=== PATIENT | female | born 1960 | race African-American/Black ===

== ENCOUNTER 2019-10-12 21:41 | Inpatient (IN) | payer OTHER, SELFPAY ==
--- NOTE | ~2019-10-12 | MR_ITS ---
EXAMINATION: MR brain/brain stem wo/w con DATE: 10/13/2019 10:26 INDICATION: Left-sided weakness. Numbness and tingling. Chest pressure. TECHNIQUE: Magnetic resonance imaging (MRI) of the brain and brainstem was performed without and with 15 mL MultiHance intravenous contrast. Sequences included sagittal and axial T1-weighted FSE, axial diffusion-weighted FS EPI, axial T2*-weighted GRE, axial T2-weighted FLAIR Propeller, and axial T2-we ighted Propeller. Postcontrast sequences included axial and coronal T1-weighted FSE. Apparent diffusi on coefficient (ADC) maps were created. COMPARISON: Head CT 10/12/2019 FINDINGS: There is a small old infarct in left cerebellum. There are scattered areas of nonspecific i ncreased T2-weighted signal intensity in the cerebral white matter, which is within normal limits for the patient's age. There is no intracranial hemorrhage, acute infarction, or abnormal intracranial m ass lesion. The ventricles are normal in size. The mastoid air cells are normal. The paranasal sinuse s are clear. The orbits are normal. IMPRESSION: 1. Small old infarct in left cerebellum. Reviewed, dictated and finalized at location A.
--- NOTE | ~2019-10-12 | MR_ITS ---
EXAMINATION: MR cervical spine wo con EXAM DATE: 10/14/2019 13:15 INDICATION: Left-sided weakness. TECHNIQUE: Multi-sequential, multiplanar MR images of the cervical spine were obtained without contra st. Axial T2, axial T2 MERGE sequence. Sagittal T1, T2, T2 fat saturation images also obtained. Th ere is no prior study for comparison. FINDINGS: There is mild to moderate mid lumbar disc disease. The vertebral bodies are aligned in the AP dimension. The spinal cord signal intensity and intrinsic morphology is normal. Cervicomedullary junction is normal in appearance. There are no suspicious marrow signal abnormalities. Paraspinal sof t tissue is unremarkable. Level by level evaluation: C2-C3: There is a minimal diffuse disc bulge. Uncovertebral joint arthropathy: None. Facet joint arthropathy: Mild. Neural foraminal stenosis: No stenosis. Central canal stenosis: No stenosis. C3-C4: There is a mild diffuse disc bulge. Uncovertebral joint arthropathy: Mild right. Facet joint arthropathy: Mild bilateral. Neural foraminal stenosis: Mild right. Central canal stenosis: Mild. C4-C5: There is a mild diffuse disc bulge. Uncovertebral joint arthropathy: Mild bilateral. Facet joint arthropathy: Mild bilateral. Neural foraminal stenosis: Mild bilateral. Central canal stenosis: Mild. C5-C6: There is a mild diffuse disc bulge. Uncovertebral joint arthropathy: Mild bilateral. Facet joint arthropathy: Mild bilateral. Neural foraminal stenosis: Mild bilateral. Central canal stenosis: Mild. C6-C7: There is a mild diffuse disc bulge. Uncovertebral joint arthropathy: Mild to moderate right, mild left. Facet joint arthropathy: Minimal bilateral. Neural foraminal stenosis: Mild to moderate right. Central canal stenosis: Mild. C7-T1: There is a mild diffuse disc bulge. Uncovertebral joint arthropathy: Mild to moderate bilateral. Facet joint arthropathy: Minimal. Neural foraminal stenosis: Mild to moderate left, mild right. Central canal stenosis: Mild. IMPRESSION: 1. Mild to moderate cervical spondylosis. Reviewed, dictated and finalized at location A.
--- NOTE | ~2019-10-12 | CT_ITS ---
EXAMINATION: CT brain wo con INDICATION: Left-sided weakness COMPARISON: None TECHNIQUE: Standard unenhanced head CT. The dose-length product (DLP) was 681.00 mGy-cm. The mA was a djusted according to patient size. Iterative reconstruction technique was employed. FINDINGS: There is no intracranial hemorrhage, acute infarction, or abnormal mass lesion. The ventric les are normal. There is no abnormal mass effect or midline shift. The diaz-white matter differentiat ion is normal. The basal cisterns are patent. The orbits are normal. The paranasal sinuses, mastoids and calvarium are normal. IMPRESSION: 1. No acute intracranial abnormality. Reviewed, dictated and finalized at location A.
--- NOTE | ~2019-10-12 | CT_ITS ---
EXAMINATION: CTA neck DATE: 10/13/2019 09:35 INDICATION: Carotid stenosis. Cerebral vascular accident. TECHNIQUE: Computed tomographic angiography (CTA) of the neck was performed with 100 mL Omnipaque-350 intravenous contrast. Automated exposure control and iterative reconstruction technique were employe d. The dose-length product was 634.13 mGy-cm. Maximum intensity projection 3D-reconstructions were cr eated by the technologist on a separate workstation. COMPARISON: None. FINDINGS: There are nodules in the thyroid measuring up to 13 mm, likely not clinically significant. There are no pathologically enlarged lymph nodes. Left vertebral artery is dominant. There is no sign ificant stenosis of the vertebral arteries. There is plaque in the proximal internal carotid arteries . There is 0% stenosis of the proximal right internal carotid artery relative to normal distal artery lumen diameter (NASCET criteria). There is 60% stenosis of the proximal left internal carotid artery relative to normal distal artery lumen diameter. There is mild cervical spondylosis. IMPRESSION: 1. 0% stenosis of the proximal right internal carotid artery relative to normal distal artery lumen d iameter (NASCET criteria). 2. 60% stenosis of the proximal left internal carotid artery relative to normal distal artery lumen d iameter. Reviewed, dictated and finalized at location A. IMPRESSION: 1. 0% stenosis of the proximal right internal carotid artery relative to normal distal artery lumen diameter (NASCET criteria). 2. 60% stenosis of the proximal left internal carotid artery relative to normal distal artery lumen diameter.
[2019-10-12 21:50] VITALS: BP 152/108; PULSE 79; RESP 14; O2SAT 100
--- NOTE | 2019-10-12 21:57 | ECG_ITS ---
Measurements Intervals [place] Rate: 82 P: 52 ND: 173 QRS: 9 QRSD: 82 T: 85 QT: 403 QTc: 473 Interpretive Statements SINUS RHYTHM VENTRICULAR PREMATURE COMPLEXES BORDERLINE ST-T WAVE ABNORMALITY- ANTEROLAT/HIGH LAT LEADS BASELINE ARTIFACT- V1, V4-V5 BORDERLINE ECG Electronically Signed On 10-13-2019 7:49:28 CDT by Urbano Stephenson D.O.
--- NOTE | 2019-10-12 22:08 | ED.NEUROSD ---
HPI - Neuro Symptoms/Deficit General Chief Complaint: Neuro Symptoms/Deficit Stated Complaint: L sided weakness Time Seen by Provider: 10/12/19 21:42 History of Present Illness HPI Narrative: She has had intermittent paresthesias to the left face and arm throughout the day. Then about 30 minutes prior to arrival her symptoms became worse. At that time she reorts that she was not able to move her left arm or leg at all. She also developed a severe headache. When EMS arrived they found that she was flacid on the left side. During transport her strength began improving and she was again able to move the left side. Related Data Home Medications Medication Instructions Recorded Confirmed alirocumab 75 mg/mL subcutaneous 75 mg SUB-Q ONCE 04/10/19 10/13/19 pen injector metoprolol succinate 50 mg 50 mg PO TID tablet 04/10/19 10/13/19 tablet,extended release 24 hr ticagrelor 90 mg tablet 90 mg PO HS 04/10/19 10/13/19 amlodipine-benazepril 1 cap PO HS 10/13/19 10/13/19 aspirin 81 mg PO HS 10/13/19 10/13/19 calcium-vitamin D3-vitamin K 1 tablet PO BID 10/13/19 10/13/19 [Viactiv] insulin glargine [Basaglar KwikPen 30 unit SUBCUT HS 10/13/19 10/13/19 U-100 Insulin] Allergies Allergy/AdvReac Type Severity Reaction Status Date / Time No Known Allergies Allergy Unverified 10/13/19 01:31 Review of Systems Review of Systems: All systems reviewed & are unremarkable except as noted in HPI and below Constitutional: Constitutional: Denies fever(s) Cardiovascular: Cardiovascular: Denies chest pain Respiratory: Respiratory: Denies dyspnea Genitourinary: Genitourinary: Denies dysuria Neurologic: Reports headache(s), Reports focal weakness and Reports numbness PMFSH Past Medical History Medical History (Updated 10/13/19 @ 05:04 by Zan Catalan MD) Anxiety Controlled diabetes mellitus with hyperglycemia Heart disease High blood pressure Surgical History Surgical History (Updated 10/13/19 @ 05:03 by Kevin Christiansen MD) History of abdominoplasty History of coronary artery stent placement Hx of CABG Family History Family History Father Depression Family history of malignant neoplasm Throat cancer Hypertension Mother Depression Family history of alcoholism Family history of arthritis Hypertension Cerebrovascular accident Sibling Depression Hypertension Grandparent Diabetes mellitus Family history of cardiovascular disease Family history of congestive heart failure Hypertension Social History Social History Smoking status: Never smoker Alcohol intake: never Substance use: never Substance use type: does not use Gender identity (if verbalized by the patient): Female Sexual Orientation (if Verbalized by the Patient): Straight or Heterosexual Spiritual care concerns: No Exam Const: General: healthy appearing, no acute distress and alert Orientation/consciousness: patient oriented x3 HENMT: Head: normal to inspection Eyes: Pupils: Equal, round and reactive pupils present EOM: EOMs intact bilaterally Neck: Neck: normal visual inspection and no lymphadenopathy Chest: Chest palpation & inspection: no tenderness Resp: Effort & Inspection: normal respiratory effort Auscultation: clear to auscultation bilaterally, no rales, no rhonchi and no wheezes Cardio: Jugular venous distension: no JVD Rate: regular rate Rhythm: regular rhythm Heart sounds: no murmurs GI: Inspection: non-distended GI Palp: Yes Soft to palpation and No Tenderness to palpation present (GI) Skin: General skin exam: normal color Neuro: General: patient oriented x3 and moves all extremities Speech: normal speech Other: 3/5 strength in right upper and right lower extremity Extrem: General: no edema Psych: Appearance: well kempt Affect: normal affect Course Vital Signs Bety
[2019-10-12 22:30] VITALS: BP 121/81; PULSE 80; RESP 15; O2SAT 99
[2019-10-12 22:36] LABS: Basophils Percent Auto 0.5 % (0.2-1.2); Eosinophils Absolute Auto 0.1 K/mm3 (0-0.3); Eosinophils Percent Auto 1.5 % (0-4.4); Hematocrit 34.3 % (37.0-47.0); Hemoglobin 11.5 g/dL (12.0-15.0); Immature Granulocyte Absolute 0.01 K/mm3 (0.00-0.031); Immature Granulocyte Percent A 0.1 % (0-0.5); Lymphocytes Absolute Auto 3.43 K/mm3 (0.9-3.2); Lymphocytes Percent Auto 46.1 % (18.3-44.2); Mean Corpuscular HGB Conc 33.5 g/dl (32-36); Mean Corpuscular Hemoglobin 28.5 pg (26-34); Mean Corpuscular Volume 84.9 fl (80-100); Mean Platelet Volume 11.3 fl (7.4-10.4); Monocytes Absolute Auto 0.3 K/mm3 (0.1-0.6); Monocytes Percent Auto 4.2 % (2.6-8.5); Neutrophils Absolute Auto 3.5 K/mm3 (1.3-6.7); Neutrophils Percent Auto 47.6 % (45.5-73.1); Platelet Count Result 228 k/mm3 (150-375); Red Blood Count 4.04 M/mm3 (4.2-5.4); Red Cell Distribution Width 12.3 % (11.5-14.5); White Blood Count 7.4 K/mm3 (4.5-10.0)
[2019-10-12 22:43] LABS: INR 0.9; Prothrombin Time 11.5 Seconds (11.1-14.7)
[2019-10-12 22:44] LABS: Partial Thromboplastin Time 25.5 SECONDS (22.3-36.8)
[2019-10-12 22:46] LABS: Alanine Aminotransferase 17 U/L (4-35); Albumin Level 4.6 g/dL (3.5-5.1); Alkaline Phosphatase 100 U/L (38-126); Aspartate Amino Transferase 25 U/L (14-36); Bilirubin,Total 0.2 mg/dL (0.2-1.3); Blood Urea Nitrogen 16 mg/dL (7-17); Calcium 9.4 mg/dL (8.4-10.2); Carbon Dioxide 23 mmol/L (22-30); Chloride 107 mmol/L (98-107); Estimated CRCL calculation 86 ml/min; Estimated Glomerular Filt Rate > 60; Glucose 137 mg/dL (65-105); Potassium 4.4 mmol/L (3.4-5.0); Sodium 138 mmol/L (137-145)
[2019-10-12 23:00] VITALS: BP 144/85; PULSE 80; RESP 16; O2SAT 99
[2019-10-12 23:23] VITALS: BP 121/80; PULSE 75; RESP 14; O2SAT 99
[2019-10-12] MEDS: SODIUM CHLORIDE 0.9% IV 1,000 ML 999 ML IV CONT (23:24)
[2019-10-13] VITALS (23 sets, daily range): BP systolic 80–171; BP diastolic 55–135; PULSE 55–85; RESP 14–18; TEMP 35.6–37.5; O2SAT 97–100; BMI 30.7
--- NOTE | 2019-10-13 00:08 | ECG_ITS ---
Measurements Intervals [place] Rate: 82 P: 59 GA: 174 QRS: 9 QRSD: 90 T: 110 QT: 384 QTc: 450 Interpretive Statements SINUS RHYTHM VENTRICULAR PREMATURE COMPLEXES NONSPECIFIC ST & T-WAVE ABNORMALITY- ANTEROLAT/HIGH LAT LEADS BASELINE ARTIFACT- II, III, AVF, V1-V2, V6 BORDERLINE ECG Electronically Signed On 10-13-2019 7:51:24 CDT by Urbano Stephenson D.O.
[2019-10-13 00:48] LABS: Cholesterol 205 mg/dL (0-200); HDL Direct 63 mg/dL; Phosphorus 4.4 mg/dL (2.5-4.5); Triglycerides 225 mg/dL (<150)
[2019-10-13 00:52] LABS: Troponin I < 0.012 ng/mL (0.000-0.034)
[2019-10-13 00:59] LABS: LDL Cholesterol Direct 75 mg/dL
--- NOTE | 2019-10-13 01:00 | ADMGEN ---
This patient, Cesar Benton, was admitted to IMU Room 203-01 on 10/13/19 at 0043. Patient/family oriented to hospital policies and general routines including ID bracelet, bed and alarms, visiting hours, pain management, procedures, bathroom and other care routines, personal items, smoking policy, room service/diet, and visiting hours. Valuables list has been completed. Information on how to activate the Rapid Response Team has been discussed. Patient/Family are encouraged to report perceived risks to care and to ask questions if they do not understand what they are told or what they should do.
[2019-10-13 01:07] LABS: Erythrocyte Sedimentation Rate 41 mm/hr (0-20)
--- NOTE | 2019-10-13 01:42 | PM.IMHP ---
H&P: HPI History of Present Illness Chief complaint: Stroke Narrative: This is a Diabetic female with known history of multiple previous CVAs, CAD+ s/p CABG x 8, and HTN who presented to the ER earlier this evening with a complaint of intermittent numbness/tingling all throughout the day and left sided weakness. The patient reports that she started to have left sided facial numbness around 9:30 am yesterday morning which progressed and involved the whole left side of her body. Her symptoms seemed to improve after a few hours but she still had left sided tingling. She didn't think much about it because she had similar symptoms about 1 month ago which resolved on its own. She had sex with her in the early evening and around 8:30 pm she was trying to get into the bathtub when she again started to have severe left sided numbness/tingling but now experiencing left sided weakness involving both her upper and lower extremity. Her left weakness was worse in the lower extremity. She denies any blurry vision or double vision. Her noticed that she had mild slurring of her speech but did not notice any facial droop. She denies any recent head trauma, passing out, or seizure like activity. She also relates that tonight she has had midsternal chest pressure and palpitations. She has had chest pressure for almost 1 month now. She denies any shortness of breath, fevers, chills, headache, abdominal pain, dysuria, hematuria,nausea, vomiting, diarrhea or rectal bleeding. CT brain was obtained and is unremarkable. Neurology has been consulted by ER provider. On my encounter with the patient tonight she continues to have severe left upper/lower extremity weakness++ Review of Systems Review of Systems: All systems reviewed & are unremarkable except as noted in HPI and below PMFSH Past Medical History Medical History Anxiety Controlled diabetes mellitus with hyperglycemia Heart disease High blood pressure Surgical History Surgical History History of abdominoplasty History of coronary artery stent placement Hx of CABG Family History Family History Father Depression Family history of malignant neoplasm Throat cancer Hypertension Mother Depression Family history of alcoholism Family history of arthritis Hypertension Cerebrovascular accident Sibling Depression Hypertension Grandparent Diabetes mellitus Family history of cardiovascular disease Family history of congestive heart failure Hypertension Social History Social History Smoking status: Never smoker Alcohol intake: never Substance use: never Substance use type: does not use Gender identity (if verbalized by the patient): Female Sexual Orientation (if Verbalized by the Patient): Straight or Heterosexual Spiritual care concerns: No Meds Home Medications and Allergies Home Medications Medication Instructions Recorded Confirmed Type alirocumab 75 mg/mL subcutaneous 75 mg SUB-Q ONCE 04/10/19 10/13/19 History pen injector dulaglutide 1.5 mg/0.5 mL 1.5 mg SUB-Q WEEKLY 90 Days #6.5 ml 04/10/19 10/13/19 Rx subcutaneous pen injector metformin 500 mg tablet 1,000 mg PO BID #360 tablet 04/10/19 10/13/19 Rx metoprolol succinate 50 mg 50 mg PO TID tablet 04/10/19 10/13/19 History tablet,extended release 24 hr ticagrelor 90 mg tablet 90 mg PO HS 04/10/19 10/13/19 History ergocalciferol (vitamin D2) 1,250 50,000 unit PO WEEKLY #12 cap 04/19/19 10/13/19 Rx mcg (50,000 unit) capsule amlodipine-benazepril 1 cap PO HS 10/13/19 10/13/19 History aspirin 81 mg PO HS 10/13/19 10/13/19 History calcium-vitamin D3-vitamin K 1 tablet PO BID 10/13/19 10/13/19 History [Viactiv] insulin glargine [Simoneaglstiven CornellPen 30 unit SOLIZ
[2019-10-13] MEDS: amLODIPine BESYLATE 5 MG TABLET 10 MG PO (02:00)
[2019-10-13] MEDS: METOPROLOL SUCCINATE EXT REL 50 MG TABCR PO (02:01)
[2019-10-13] MEDS: ATORVASTATIN 20 MG TABLET PO ×2 (02:01→21:12)
[2019-10-13] MEDS: TICAGRELOR 90 MG TABLET PO ×2 (02:01→21:12)
[2019-10-13] MEDS: lisinopriL 20 MG TABLET PO (02:02)
[2019-10-13] MEDS: ACETAMINOPHEN 325 MG TABLET 650 MG PO ×3 (02:04→21:12)
[2019-10-13] MEDS: ASPIRIN 81 MG CHEWABLE TABLET 324 MG PO (02:05)
[2019-10-13 02:06] LABS: Glucose Point of Care 150 (65-105)
[2019-10-13] MEDS: LACTATED RINGERS 1,000 ML 100 ML IV CONT (02:20)
[2019-10-13 02:21] LABS: Troponin I < 0.012 ng/mL (0.000-0.034)
[2019-10-13 04:42] LABS: Basophils Percent Auto 0.5 % (0.2-1.2); Eosinophils Absolute Auto 0.1 K/mm3 (0-0.3); Eosinophils Percent Auto 1.2 % (0-4.4); Hematocrit 31.3 % (37.0-47.0); Hemoglobin 10.5 g/dL (12.0-15.0); Immature Granulocyte Absolute 0.01 K/mm3 (0.00-0.031); Immature Granulocyte Percent A 0.1 % (0-0.5); Lymphocytes Absolute Auto 3.23 K/mm3 (0.9-3.2); Lymphocytes Percent Auto 42.8 % (18.3-44.2); Mean Corpuscular HGB Conc 33.5 g/dl (32-36); Mean Corpuscular Hemoglobin 28.6 pg (26-34); Mean Corpuscular Volume 85.3 fl (80-100); Mean Platelet Volume 11.1 fl (7.4-10.4); Monocytes Absolute Auto 0.4 K/mm3 (0.1-0.6); Neutrophils Absolute Auto 3.8 K/mm3 (1.3-6.7); Neutrophils Percent Auto 50.4 % (45.5-73.1); Platelet Count Result 197 k/mm3 (150-375); Red Blood Count 3.67 M/mm3 (4.2-5.4); Red Cell Distribution Width 12.5 % (11.5-14.5); White Blood Count 7.5 K/mm3 (4.5-10.0)
[2019-10-13 04:55] LABS: Blood Urea Nitrogen 14 mg/dL (7-17); Calcium 8.9 mg/dL (8.4-10.2); Carbon Dioxide 22 mmol/L (22-30); Chloride 109 mmol/L (98-107); Estimated CRCL calculation 91 ml/min; Estimated Glomerular Filt Rate > 60; Glucose 142 mg/dL (65-105); Magnesium 1.9 mg/dL (1.6-2.3); Sodium 138 mmol/L (137-145)
[2019-10-13 05:07] LABS: Troponin I < 0.012 ng/mL (0.000-0.034)
[2019-10-13 05:52] LABS: Glucose Point of Care 133 (65-105)
[2019-10-13] MEDS: ASPIRIN 81 MG ENTERIC TABLET PO (08:46)
--- NOTE | 2019-10-13 09:56 | PM.CNCAR ---
Assessment and Plan Additional Plan unstable angina/crescendo angina, Hx of CABG 2012 and PCI 2017 in OSH, no elevated trop, no dynamic EKG changes, in setting of acute ischemic stroke, plan ptn will need evaluation of CAD but after evaluation of acute ischemic stroke and risk of hemorrhagic conversion with anticoagulation with [facility]. ASA, Ticagrelor, TTE, add imdur 30 mg daily, cont B-cesario, CCB, and if BP is lower consider decreasing ACEI dose History of Present Illness History of Present Illness Consult date/time: 10/13/19 09:56 Consult reason: chest pain Reason For Visit: Stroke Narrative: Patient presented with one week Hx of intermittent left facial numbness but yesterday she had left side weakness and numbness extended from face to all left side, her weakness was severe, but today she feels improvement in weakness and numbness but still present. She has been having chest pain resterosternal moderate 7/10, pressure like non radiating that has been in increasing in severity and frequency for last 2 weeks but was afraid to seek help because of concern regarding COVID-19 infection risk with hospital visits. Pain improves with rest and SL NTG. She had CABG in 2013 and followed by stents to CAD in 2017. She had been feeling occasional pain since then but increased recently. Review of Systems Review of Systems: All systems reviewed & are unremarkable except as noted in HPI and below PMFSH Past Medical History Medical History Anxiety Controlled diabetes mellitus with hyperglycemia Heart disease High blood pressure Surgical History Surgical History History of abdominoplasty History of coronary artery stent placement Hx of CABG Family History Family History Father Depression Family history of malignant neoplasm Throat cancer Hypertension Mother Depression Family history of alcoholism Family history of arthritis Hypertension Cerebrovascular accident Sibling Depression Hypertension Grandparent Diabetes mellitus Family history of cardiovascular disease Family history of congestive heart failure Hypertension Social History Social History Smoking status: Never smoker Alcohol intake: never Substance use: never Substance use type: does not use Gender identity (if verbalized by the patient): Female Sexual Orientation (if Verbalized by the Patient): Straight or Heterosexual Spiritual care concerns: No Meds Home Medications and Allergies Home Medications Medication Instructions Recorded Confirmed Type alirocumab 75 mg/mL subcutaneous 75 mg SUB-Q ONCE 04/10/19 10/13/19 History pen injector dulaglutide 1.5 mg/0.5 mL 1.5 mg SUB-Q WEEKLY 90 Days #6.5 ml 04/10/19 10/13/19 Rx subcutaneous pen injector metformin 500 mg tablet 1,000 mg PO BID #360 tablet 04/10/19 10/13/19 Rx metoprolol succinate 50 mg 50 mg PO TID tablet 04/10/19 10/13/19 History tablet,extended release 24 hr ticagrelor 90 mg tablet 90 mg PO HS 04/10/19 10/13/19 History ergocalciferol (vitamin D2) 1,250 50,000 unit PO WEEKLY #12 cap 04/19/19 10/13/19 Rx mcg (50,000 unit) capsule amlodipine-benazepril 1 cap PO HS 10/13/19 10/13/19 History aspirin 81 mg PO HS 10/13/19 10/13/19 History calcium-vitamin D3-vitamin K 1 tablet PO BID 10/13/19 10/13/19 History [Viactiv] insulin glargine [Basaglar KwikPen 30 unit SUBCUT HS 10/13/19 10/13/19 History U-100 Insulin] Allergies Allergy/AdvReac Type Severity Reaction Status Date / Time No Known Allergies Allergy Unverified 10/13/19 01:31 Vital Signs Vital Signs - 24 hr 10/12/19 21:50 10/12/19 22:30 10/12/19 23:00 Temperature Pulse Rate 79 80 80 Respiratory Rate 14 15 16 Blood Pressure 152/108 H 121/81 144/85 H Pulse Oximetry 100 99 99
[2019-10-13 12:24] LABS: Glucose Point of Care 104 (65-105)
[2019-10-13] MEDS: ISOSORBIDE MONONITRATE 30 MG TAB.ER.24H PO (12:47)
[2019-10-13 16:44] LABS: Glucose Point of Care 127 (65-105)
--- NOTE | 2019-10-13 17:42 | PM.IMPN ---
Progress Note: A&P Assessment and Plan (1) Ischemic stroke: Code(s): I63.9 - Cerebral infarction, unspecified Status: Acute Assessment and Plan: With previous history will have to rule out CVA, echocardiogram, MRI brain. Allow for permissive HTN initially. . CT Brain was normal. Check Lipid panel. Administer Atorvastatin PO. Neurology has been consulted by ER provider and with previous history of some carotid disease worries by sonogram will get CTA of the carotids. (2) Chest pain: Qualifiers: Chest pain type: unspecified Qualified Code(s): R07.9 - Chest pain, unspecified Code(s): R07.9 - Chest pain, unspecified Status: Acute Assessment and Plan: EKG no definite ischemia. Nitroglycerin PRN for chest pain, Cardiology has seen and nitrate long-acting added to regime. Troponins are negative. (3) Diabetes mellitus: Qualifiers: Diabetes mellitus type: type 2 Diabetes mellitus usp insulin use: with director long term care use Diabetes mellitus complication status: without complication Qualified Code(s): E11.9 - Type 2 diabetes mellitus without complications; Z79.4 - detention (current) use of insulin Code(s): E11.9 - Type 2 diabetes mellitus without complications Status: Chronic Assessment and Plan: Accuchecks, SSI coverage, hypoglycemic protocol, decrease HS Lantus to 25 units. (4) HTN (hypertension) with goal to be determined: Code(s): I10 - Essential (primary) hypertension Status: Chronic Assessment and Plan: elevated initially but now low after restarting oral meds. monitor blood pressure. (5) Neuropathy: Code(s): G62.9 - Polyneuropathy, unspecified Status: Chronic Assessment and Plan: Inactive problem Subjective Date/time seen: 10/13/19 17:42 Interval history: 59-year-old type 2 diabetic with known coronary disease and cerebrovascular disease admitted with paresthesias and weakness of left arm and leg lungs substernal chest pain. Troponins are normal in initial CT scan no acute changes. Appears seizures have subsided but still has some weakness on the left arm. 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 and strength in the upper extremity Cranial nerves 2-12 are intact Objective Data Vital Signs Vital Signs: Vital Signs - 24 hr 10/12/19 21:50 10/12/19 22:30 10/12/19 23:00 Temperature Pulse Rate 79 80 80 Respiratory Rate 14 15 16 Blood Pressure 152/108 H 121/81 144/85 H Pulse Oximetry 100 99 99 10/12/19 23:23 10/13/19 00:35 10/13/19 00:43 Temperature 37.5 C Pulse Rate 75 82 83 Respiratory Rate 14 16 18 Blood Pressure 121/80 140/103 H 171/135 H Pulse Oximetry 99 99 100 10/13/19 00:48 10/13/19 00:50 10/13/19 02:00 Temperature Pulse Rate 85 83 74 Respiratory Rate 18 Blood Pressure Pulse Oximetry 100 10/13/19 02:01 10/13/19 03:32 10/13/19 03:46 Temperature 35.6 C L Pulse Rate 74 67 67 Respiratory Rate 18 18 Blood Pressure 112/73 Pulse Oximetry 100 100 10/13/19 04:00 10/13/19 05:51 10/13/19 05:55 Temperature Pulse Rate 68 62 Respiratory Rate Blood Pressure 103/59 L Pulse Oximetry 10/13/19 06:05 10/13/19 08:00 10/13/19 10:41 Temperature 36.6 C Pulse Rate 62 55 L 85 Respiratory Rate 14 Blood Pressure 95/61 L Pulse Oximetry 98 10/13/19 12:00 10/13/19 14:30 10/13/19 16:00 Temperature 36.7 C 36.6 C Pulse Rate 60 68 64 Respiratory Rate 18 16 Blood Pressure 102/64 80/55 L Pulse Oximetry 97 97 10/13/19 17:09 Temperature Pulse Rate Respiratory Rate Blood Pressure 98/62 L Pulse Oximetry Intake/Output Intake/Outp
[2019-10-13 20:47] LABS: Glucose Point of Care 212 (65-105)
[2019-10-13] MEDS: INSULIN GLARGINE (*BKC) 100 UNITS/ML 25 UNITS SUB-Q (21:13)
--- NOTE | 2019-10-13 22:28 | PC.NURSE ---
Pts bp was 102/63. I was concerned about giving her norvasc, metoprolol, and lisinipril since this was her highest bp. Her previous was 98 and 80 earlier in the day. I called Angie she said to hold it for tonight. Pt also stated while I was assessing her she has had chest heaviness since she arrived. She states it hasn't worse but is still there. I offered her some nitro which she refused she said she would let me know if it worsened.
[2019-10-14] VITALS (19 sets, daily range): BP systolic 90–135; BP diastolic 55–74; PULSE 56–84; RESP 16–20; TEMP 35.9–36.8; O2SAT 93–100
--- NOTE | 2019-10-14 | ECHO_ITS ---
Patient Info Name: Cesar Benton Age: 59 years : 1960 Gender: Female Ht: 64 in Wt: 169 lbs BSA: 1.88 m2 HR: 70 bpm BP: 118 / 67 mmHg Technical Quality: Good Exam Date: 10/14/2019 9:19 AM Exam Location: [facility] Patient Status: Inpatient Admit Date: 10/13/2019 Staff Ordering Physician: Kevin Christiansen MD Core Checker: Praful Gibson, EL, RT Attending Provider: Kevin Christiansen MD Referring Physician: Елена IRBY; Exam Type: CA echo dop bubble study w con Study Info Indications G45.9 - Transient cerebral ischemic attack, unspecified Complete two-dimensional, color flow and Doppler transthoracic echocardiogram is performed with contrast to opacify the left ventricle and to improve the deliniation of the left ventricle endocardial borders. Complete two-dimensional, color flow and Doppler transthoracic echocardiogram is performed with agitated saline. Summary 1. Left ventricular systolic function is normal, estimated at 55-60%. 2. There is mildly increased left ventricular wall thickness. 3. There is mild aortic valve sclerosis. 4. Intact interatrial septum visualized by Doppler and agitated saline imaging. 5. There is trivial pericardial effusion. Left Ventricle Left ventricular chamber dimension is normal. Left ventricular systolic function is normal, estimated at 55-60%. There is mildly increased left ventricular wall thickness. Left ventricular septal wall motion is normal. The left ventricular diastolic function is normal. Right Ventricle Right ventricular chamber dimension is normal. Right ventricular systolic function is normal. Ventricular Septum Intact interventricular septum visualized by color flow imaging. Left Atria Left atrial chamber dimension is normal. Right Atria Right atrial chamber dimension is normal. Atrial Septum Intact interatrial septum visualized by Doppler and agitated saline imaging. Aortic Valve The aortic valve is trileaflet. There is mild aortic valve sclerosis. There is no aortic valve stenosis. There is no aortic valve regurgitation. Pulmonic Valve The pulmonic valve is normal. There is no pulmonic valve stenosis. There is no pulmonic regurgitation. Mitral Valve The mitral valve has normal leaflets. There is no mitral valve stenosis. There is no mitral valve regurgitation. Tricuspid Valve The tricuspid valve leaflets are normal. There is no significant tricuspid valve stenosis. There is no tricuspid valve regurgitation. Pericardium/Pleural The pericardium appears normal. There is trivial pericardial effusion. Inferior Vena Cava Normal inferior vena cava with >50% collapse upon inspiration consistent with normal right atrial pressure, 5 mmHg. Aorta The aortic root size at the sinus of Valsalva is normal. The prox ascending aorta size is normal. Left Ventricular Outflow Tract Name Value Normal LVOT 2D LVOT Diameter 2.1 cm LVOT Doppler LVOT Peak Gradient 3 mmHg LVOT Mean Gradient 2 mmHg LVOT VTI 20 cm L
[2019-10-14 01:43] LABS: Glucose Point of Care 119 (65-105)
[2019-10-14] MEDS: ACETAMINOPHEN 325 MG TABLET 650 MG PO ×3 (04:56→20:14)
[2019-10-14 05:00] LABS: Blood Urea Nitrogen 11 mg/dL (7-17); Carbon Dioxide 24 mmol/L (22-30); Chloride 107 mmol/L (98-107); Estimated CRCL calculation 91 ml/min; Estimated Glomerular Filt Rate > 60; Glucose 110 mg/dL (65-105); Potassium 3.8 mmol/L (3.4-5.0); Sodium 138 mmol/L (137-145)
[2019-10-14 05:51] LABS: Glucose Point of Care 113 (65-105)
--- NOTE | 2019-10-14 07:47 | CONS_ITS ---
DATE OF CONSULTATION: 10/13/[address] Loco and Dr. Kevin Christiansen. HISTORY OF PRESENT ILLNESS: A 59-year-old right-handed female has admitted to [facility] through the emergency room for the complaint of intermittent numbness and tingling sensation all throughout the day on the left side of her body involving the left face and subsequently involving the left whole side. She had the same symptomatology about a month ago, which resolved on its own. She gave no history of any other symptomatology. She did complain of midsternal chest pressure and palpitation. PAST MEDICAL HISTORY: Anxiety, hypertension, diabetes mellitus, coronary artery disease and has undergone coronary artery bypass grafting x8. In addition, she has had abdominoplasty. SOCIAL HISTORY: She does not smoke, does not drink. MEDICATIONS: At the time of admission to the hospital, she was taking metformin 1000 mg twice a day, metoprolol 50 mg 3 times a day, ticagrelor 90 mg at night, ergocalciferol 57835 units weekly, amlodipine 1 capsule at bedtime with benazepril, aspirin 81 mg at bedtime, calcium with vitamin 1 tab twice a day, insulin 30 units subcu at bedtime. ALLERGIES: SHE IS NOT ALLERGIC TO ANY MEDICATION. PHYSICAL EXAMINATION: VITAL SIGNS: Evaluation up until now revealed her to be afebrile with pulse of 79, respirations 14, blood pressure 152/108, has come down to 144/85. Head normocephalic with no cranial bruit. Ear, nose, throat examination normal. NECK: Supple with no cervical bruit. No thyromegaly. No lymphadenopathy. HEART: Regular with no murmur. LUNGS: Clear to auscultation with no crepitation. ABDOMEN: Soft with no organomegaly. NEUROLOGIC: At this stage, she is awake, alert, cooperative. Speech not dysphasic, not dysarthric, not dysphonic. Pupils round, regular. Stevens of vision full. Extraocular movements full face symmetrical. Tongue midline. Motor examination revealed her to have no drift of 1 side or other side. Reflexes symmetrical, but sluggish. Plantars are downgoing. ASSESSMENT AND PLAN: Evaluation up until now includes cardiology consultation with Dr. Lawrence with the documentation of no elevated troponin. No dynamic EKG changes. Suggested to start the medication of the neuro evaluation completed. MRI of the brain is pending. Head CT scan is negative so is the neck CTA. She had a Doppler study in January 2019. At that time, the study was less than 50% in the right internal carotid artery, but 50% to 69% stenosis in the left IT internal carotid artery. Considering that, definitely she will need the MRI and CTA before any further recommendations are made. In the meantime, patient is receiving her medications including insulin, metoprolol, ticagrelor, atorvastatin, amlodipine, lisinopril, aspirin and isosorbide. Once the MRI and CTA completed, further recommendations will be made. ADITI MYERS M.D. BANQUET STEWARD BANQUET STEWARD D Jignesh MT: Jodi
[2019-10-14] MEDS: METOPROLOL SUCCINATE EXT REL 50 MG TABCR PO ×2 (08:41→20:15)
[2019-10-14] MEDS: ISOSORBIDE MONONITRATE 30 MG TAB.ER.24H PO (08:41)
[2019-10-14] MEDS: ASPIRIN 81 MG ENTERIC TABLET PO (08:41)
[2019-10-14] MEDS: PERFLUTREN LIPID MICROSPHERES 1.5 ML VIAL DILUTED TO 10 ML TOTAL VOLUME IV PUSH (09:57)
--- NOTE | 2019-10-14 10:35 | WPDNEUROPN ---
Progress Note: A&P Assessment and Plan (1) HTN (hypertension) with goal to be determined: Code(s): I10 - Essential (primary) hypertension Status: Chronic (2) Chest pain: Qualifiers: Chest pain type: unspecified Qualified Code(s): R07.9 - Chest pain, unspecified Code(s): R07.9 - Chest pain, unspecified Status: Acute (3) Diabetes mellitus: Qualifiers: Diabetes mellitus type: type 2 Diabetes mellitus lobsterman insulin use: with correction use Diabetes mellitus complication status: without complication Qualified Code(s): E11.9 - Type 2 diabetes mellitus without complications; Z79.4 - shelter (current) use of insulin Code(s): E11.9 - Type 2 diabetes mellitus without complications Status: Chronic (4) Ischemic stroke: Code(s): I63.9 - Cerebral infarction, unspecified Status: Acute (5) BMI 30.0-30.9,adult: Code(s): Z68.30 - Body mass index (BMI) 30.0-30.9, adult Status: Acute (6) Neuropathy: Code(s): G62.9 - Polyneuropathy, unspecified Status: Chronic (7) Osteopenia: Code(s): M85.80 - Other specified disorders of bone density and structure, unspecified site Status: Acute Additional Plan negative for stroke will get mri of c.spine before considering diabetic neuropathy only Review of Systems Review of Systems: All systems reviewed & are unremarkable except as noted in HPI and below Exam Const: General: no acute distress Nutritional Appearance: overweight Orientation/consciousness: patient oriented x3 Limitations: no limitations HENMT: Head: normal to inspection Ears: hearing grossly normal bilaterally General nose exam: No nasal discharge present Eyes: General: appearance normal, both eyes and all related structures Alignment and Position: alignment normal and position abnormal Periorbital: periorbital findings normal Eyelids: eyelids normal Conjunctivae: conjunctivae normal Sclera: sclerae normal Cornea: corneas normal Pupils: Equal, round and reactive pupils present EOM: EOMs intact bilaterally Neck: Neck: normal visual inspection, full ROM and no lymphadenopathy Resp: Effort & Inspection: normal respiratory effort Auscultation: clear to auscultation bilaterally Cardio: Rate: regular rate Rhythm: regular rhythm GI: Auscultation: normal bowel sounds Skin: General skin exam: no rashes or lesions noted Neuro: General: patient oriented x3, moves all extremities, no meningeal signs and no focal motor deficits Cranial nerves: Yes CN's II-XII intact bilaterally Speech: normal speech Gait exam (Neuro): Normal gait present Motor exam (neuro): 5/5 motor strength present throughout Deep tendon reflexes (DTR's): Right triceps reflex intensity grade: 1+, Left triceps reflex intensity grade: 1+, Rt Biceps (C5, C6): 1+, Left biceps reflex intensity grade: 1+, Right brachioradialis reflex intensity grade: 1+, Left brachioradialis reflex intensity grade: 1+, Right patellar reflex intensity grade: 1+, Left patellar reflex intensity grade: 1+, Right ankle reflex intensity grade: 1+ and Left ankle reflex intensity grade: 1+ Plantar Reflex Responses: downgoing: bilateral Extrem: General: normal to inspection Psych: Appearance: grossly normal Speech and movement: Normal speech and movement present Affect: normal affect Attitude: cooperative Thought process: Normal thought process present Thought content: Yes Normal thought content present Insight: Good insight present (Psych) Judgement: Good judgement present (Psych) Objective Data Vital Signs Vital Signs: Vital Signs - 24 hr 10/13/19 10:41 10/13/19 12:00 10/13/19 14:30 Temperature 36.7 C Pulse Rate 85 60 68 Respiratory Rate 18 Blood Pressure 102/64 Pulse Oximetry 97 10/13/19 16:00 10/13/19 17:09 10/13/19 18:17 Temperature 36.6 C Pulse Rate 64 66 Respiratory Rate 16 Blood Pressure 80/55 L 98/62 L Pulse Oximetry 97 09/24
--- NOTE | 2019-10-14 11:24 | PM.PNCARD ---
Progress Note: A&P Assessment and Plan (1) Chest pain: Qualifiers: Chest pain type: unspecified Qualified Code(s): R07.9 - Chest pain, unspecified Code(s): R07.9 - Chest pain, unspecified Status: Acute Assessment and Plan: [place] to have unstable angina/crescendo angina, Hx of CABG 2012 and PCI 2016 in OSH, no elevated trop, no dynamic EKG changes, in setting of what was felt to be an acute ischemic stroke. [place] that she will need evaluation of CAD but after evaluation of what was felt to be an acute ischemic stroke and risk of hemorrhagic conversion with anticoagulation with [facility]. MRI 10/13/2019:Small old infarct in left cerebellum. CT of the neck 10/13/2019: 0% stenosis of the proximal right internal carotid artery relative to normal distal artery lumen diameter (NASCET criteria). 60% stenosis of the proximal left internal carotid artery relative to normal distal artery lumen diameter. Continues to have chest pressure that has been present since admission. Has received 2 doses of the isosorbide mononitrate with no change in her discomfort. She describes this as a pressure. It does not increase with activity, position change or deep inspiration. Nothing has seems to make it better. Troponin negative x3. No acute EKG changes. Stop isosorbide mononitrate. Echo pending. GI cocktail. Protonix 40 mg IV push. Protonix 40 mg p.o. daily. Further workup of her left-sided weakness and paresthesias per the neurologist and hospitalist. Once that is all sorted out will consider further cardiac workup. (2) Palpitation: Code(s): R00.2 - Palpitations Status: Acute Assessment and Plan: She states that she has been having palpitations since admission. These have increased in frequency at home as well. Telemetry reviewed. Rare episodes premature ventricular contractions. None recently. Potassium 3.8 this morning. Magnesium 1.9 yesterday. Additional Plan Plan discussed Dr. Camara 1125 10/14/2019 Subjective Date/time seen: 10/14/19 11:24 Interval history: Follow-up for: History of coronary disease and cerebrovascular disease admitted with paresthesias and weakness of left arm and leg and substernal chest pressure. Date of service: 10/14/2019 Subjective: Frustrated. Numbness/tingling and weakness of the left side continues. She continues to have chest pressure and palpitations. Chest pressure has been present since admission. Review of Systems Constitutional: Constitutional: Reports fatigue, Reports headache(s) and Reports weakness Eyes: Eyes: Denies blurry vision ENT: Reports Normal hearing present, Denies dysphagia and Denies dizziness Cardiovascular: Cardiovascular: Reports chest pain (Chest pressure that has been present since admission), Denies pedal edema, Denies lightheadedness, Denies dyspnea and Reports other (Intermittent palpitations.) Respiratory: Respiratory: Denies dyspnea Gastrointestinal: Gastrointestinal: Reports bloating, Denies nausea, Denies vomiting and Reports other (Feels full early when eating) Genitourinary: Genitourinary: Denies hematuria Musculoskeletal: Musculoskeletal: Reports numbness (Left side) and Reports tingling (Left side) Integumentary/Breasts: Skin/Breast: Denies pruritus, Denies erythema and Denies rash Neurologic: Reports Normal hearing present, Reports abnormal gait (Related to left-sided weakness), Denies dizziness and Reports paresthesias (Left arm and leg) Psychiatric: Psychiatric: Reports anxiety Exam Const: General: cooperative, no acute distress and uncomfortable Nutritional Appearance: overweight Orientation/consciousness: patient oriented x3 Limitations: physical limitations (Left-side weak) HENMT: General nose exam: Normal nares present and no epistaxis Mouth: Yes moist mucous membranes Eyes: Sclera: sclerae normal Pupils: Equal, round and reactive pupi
[2019-10-14 12:08] LABS: Glucose Point of Care 119 (65-105)
[2019-10-14] MEDS: BELLADONNA ALK/PHENOB ELIX 10 ML, MAG HYDROX/ALUMINUM HYD/SIMETH 30 ML, LIDOCAINE HCL 2... PO (12:17)
[2019-10-14] MEDS: PANTOPRAZOLE SODIUM IV 40 MG VIAL IV PUSH (12:17)
--- NOTE | 2019-10-14 14:39 | PM.IMPN ---
Progress Note: A&P Assessment and Plan (1) Ischemic stroke: Code(s): I63.9 - Cerebral infarction, unspecified Status: Acute Assessment and Plan: , echocardiogram still pending, MRI brain no acute changes, just old infarc. . CT Brain was normal too. Administer Atorvastatin PO. CTA 60% LICA stenosis. Neurology has seen and will take on TRC when cardiac eval done Concerned her symptoms may be conversion rx. with normal MRI (2) Chest pain: Qualifiers: Chest pain type: unspecified Qualified Code(s): R07.9 - Chest pain, unspecified Code(s): R07.9 - Chest pain, unspecified Status: Acute Assessment and Plan: EKG no definite ischemia. Nitroglycerin PRN for chest pain, Cardiology has seen and nitrate added 10/12 d/alexandra with low bp and no improvement of cp. Troponins are negative. (3) Diabetes mellitus: Qualifiers: Diabetes mellitus type: type 2 Diabetes mellitus alf insulin use: with middle or intermediate school principal use Diabetes mellitus complication status: without complication Qualified Code(s): E11.9 - Type 2 diabetes mellitus without complications; Z79.4 - [facility]CI (current) use of insulin Code(s): E11.9 - Type 2 diabetes mellitus without complications Status: Chronic Assessment and Plan: Accuchecks, SSI coverage, hypoglycemic protocol, decreased HS Lantus to 25 units. and fbs today 110 (4) HTN (hypertension) with goal to be determined: Code(s): I10 - Essential (primary) hypertension Status: Chronic Assessment and Plan: elevated initially but now low after restarting oral meds. beta cesario decreased to q12h (5) Neuropathy: Code(s): G62.9 - Polyneuropathy, unspecified Status: Chronic Assessment and Plan: Neurology feels this is major factor in her symptoms. MRI cspine today mild to mod cervical spondylosis Subjective Date/time seen: 10/14/19 14:39 Interval history: Date of visit 10/13. 59-year-old type 2 diabetic with known coronary disease and cerebrovascular disease admitted with paresthesias and weakness of left arm and leg and substernal chest pain. Troponins are normal and initial CT scan no acute changes. still has some weakness on the left arm and leg. Still some chest pressure. Exam Narrative: Exam Narrative: Blood pressure 110/60 pulse 66 sat 97% on room air afebrile Pupils equal reactive to light sclera anicteric Neck supple no adenopathy left carotid bruit Lungs clear CV no murmurs gallops Abdomen is soft nontender Extremities without edema distal pulses 1+ Neuro decreased hand script girl and strength in the upper extremity and weakness of left leg too(but no drift with eyes closed and arms extended) Cranial nerves 2-12 are intact Objective Data Vital Signs Vital Signs: Vital Signs - 24 hr 10/13/19 16:00 10/13/19 17:09 10/13/19 18:17 Temperature 36.6 C Pulse Rate 64 66 Respiratory Rate 16 Blood Pressure 80/55 L 98/62 L Pulse Oximetry 97 10/13/19 19:40 10/13/19 20:00 10/13/19 22:00 Temperature 35.9 C L Pulse Rate 66 74 67 Respiratory Rate 18 Blood Pressure 102/63 Pulse Oximetry 100 10/13/19 22:23 10/14/19 00:00 10/14/19 00:11 Temperature 36.4 C L Pulse Rate 66 65 65 Respiratory Rate 20 Blood Pressure 90/55 L Pulse Oximetry 93 10/14/19 01:53 10/14/19 02:00 10/14/19 04:00 Temperature Pulse Rate 74 56 L 62 Respiratory Rate Blood Pressure Pulse Oximetry 95 10/14/19 04:20 10/14/19 06:00 10/14/19 07:44 Temperature 36.3 C L 36.4 C Pulse Rate 69 59 L 71 Respiratory Rate 20 18 Blood Pressure 118/67 115/74 Pulse Oximetry 99 99 10/14/19 08:00 10/14/19 08:41 10/14/19 10:00 Temperature Pulse Rate 77 76 61 Respiratory Rate Blood Pressure Pulse Oximetry 10/14/19 12:00 Temperature 36.5 C Pulse Rate 72 Respiratory Rate 18 Blood Pressure 116/63 Pulse Oximetry 98 Intake/Output Intake/Output: Intake & Output 10/10
[2019-10-14 17:45] LABS: Glucose Point of Care 159 (65-105)
[2019-10-14] MEDS: ATORVASTATIN 20 MG TABLET PO (20:15)
[2019-10-14] MEDS: TICAGRELOR 90 MG TABLET PO (20:15)
[2019-10-14 20:46] LABS: Glucose Point of Care 189 (65-105)
[2019-10-14] MEDS: INSULIN GLARGINE (*BKC) 100 UNITS/ML 25 UNITS SUB-Q (21:21)
[2019-10-14 23:55] LABS: Glucose Point of Care 127 (65-105)
[2019-10-15] VITALS (19 sets, daily range): BP systolic 103–154; BP diastolic 45–72; PULSE 60–84; RESP 16–20; TEMP 36.5–36.9; O2SAT 99–100
--- NOTE | 2019-10-15 03:43 | PC.NURSE ---
Spoke with Angie last night bp dropped to 80s today they only stayed in 1teens. she said to hold Norvasc and Lisinopril.
[2019-10-15 06:03] LABS: Glucose Point of Care 120 (65-105)
[2019-10-15] MEDS: ASPIRIN 81 MG ENTERIC TABLET PO (10:14)
[2019-10-15] MEDS: PANTOPRAZOLE 40 MG TABLET PO (10:15)
[2019-10-15] MEDS: ACETAMINOPHEN 325 MG TABLET 650 MG PO ×2 (10:17→20:56)
[2019-10-15 11:30] LABS: Glucose Point of Care 117 (65-105)
[2019-10-15] MEDS: METOPROLOL SUCCINATE EXT REL 50 MG TABCR PO ×2 (13:19→20:58)
--- NOTE | 2019-10-15 14:16 | PM.PNCARD ---
Progress Note: A&P Assessment and Plan (1) Chest pain: Qualifiers: Chest pain type: unspecified Qualified Code(s): R07.9 - Chest pain, unspecified Code(s): R07.9 - Chest pain, unspecified Status: Acute Assessment and Plan: still having chest pain. Hx of CABG 2012 and PCI 2017 in OSH, no elevated trop, no dynamic EKG changes. MRI 10/13/2019:Small old infarct in left cerebellum. CT of the neck 10/13/2019: 0% stenosis of the proximal right internal carotid artery relative to normal distal artery lumen diameter (NASCET criteria). 60% stenosis of the proximal left internal carotid artery relative to normal distal artery lumen diameter. Continues to have chest pressure that has been present since admission. Will repeat a EKG now as well as a troponin. Will discuss with Dr. Mcbride regarding neurological plans for workup. Further workup of her left-sided weakness and paresthesias per the neurologist and hospitalist. (2) Palpitation: Code(s): R00.2 - Palpitations Status: Acute Assessment and Plan: She states that she has been having palpitations since admission. These have increased in frequency at home as well. (3) Left-sided weakness: Code(s): R53.1 - Weakness Status: Acute Assessment and Plan: still uncertain as to etiology. Neurology following (4) CAD (coronary artery disease): Code(s): I25.10 - Atherosclerotic heart disease of [place] coronary artery without angina pectoris Status: Acute Assessment and Plan: continue dual anti-platelet therapy and current regimen. Depending on input from Neurology, will least perform a Lexiscan myocardial perfusion study tomorrow for an ischemic evaluation Subjective Date/time seen: 10/15/19 14:16 Interval history: Follow-up for: History of coronary disease and cerebrovascular disease admitted with paresthesias and weakness of left arm and leg and substernal chest pressure. Date of service: 10/15/2019 Subjective: She remains frustrated by her current symptoms and lack of answers. She is still having chest tightness that she has had since admission. Her weakness also has been persistent involving the left side of her body. Review of Systems Review of Systems: All systems reviewed & are unremarkable except as noted in HPI and below Constitutional: Constitutional: Reports fatigue, Reports headache(s) and Reports weakness Eyes: Eyes: Denies blurry vision ENT: Reports Normal hearing present, Denies dysphagia, Denies dizziness and Reports headache(s) Cardiovascular: Cardiovascular: Reports chest pain (Chest pressure that has been present since admission), Denies pedal edema, Denies lightheadedness, Denies dyspnea and Reports other (Intermittent palpitations.) Respiratory: Respiratory: Denies dyspnea Gastrointestinal: Gastrointestinal: Reports bloating, Denies dysphagia, Denies nausea, Denies vomiting and Reports other (Feels full early when eating) Genitourinary: Genitourinary: Denies hematuria Musculoskeletal: Musculoskeletal: Reports abnormal gait (Related to left-sided weakness), Reports numbness (Left side) and Reports tingling (Left side) Integumentary/Breasts: Skin/Breast: Denies pruritus, Denies erythema and Denies rash Neurologic: Reports Normal hearing present, Reports abnormal gait (Related to left-sided weakness), Denies dizziness, Reports headache(s), Reports numbness (Left side), Reports tingling (Left side), Reports paresthesias (Left arm and leg) and Reports weakness Psychiatric: Psychiatric: Reports anxiety Endocrine: Endocrine: Reports fatigue Exam Const: General: cooperative, no acute distress and uncomfortable Nutritional Appearance: overweight Orientation/consciousness: patient oriented x3 Limitations: physical limitations (Left-side weak) Other: Able to lie flat HENMT: General nose exam: Norm
--- NOTE | 2019-10-15 14:25 | ECG_ITS ---
Measurements Intervals [place] Rate: 64 P: 48 CT: 183 QRS: 0 QRSD: 91 T: 105 QT: 429 QTc: 445 Interpretive Statements SINUS RHYTHM DELAYED PRECORDIAL R/S TRANSITION LEFT VENTRICULAR HYPERTROPHY AND ST-T CHANGE BORDERLINE ST-T WAVE ABNORMALITY- ANTEROLATERAL LEADS BASELINE WANDER- I, III BORDERLINE ECG Electronically Signed On 10-15-2019 14:41:59 CDT by Urbano Stephenson D.O.
[2019-10-15 15:02] LABS: Troponin I < 0.012 ng/mL (0.000-0.034)
--- NOTE | 2019-10-15 16:56 | PM.IMPN ---
Progress Note: A&P Assessment and Plan (1) Ischemic stroke: Code(s): I63.9 - Cerebral infarction, unspecified Status: Acute Assessment and Plan: Exam not consistent with stuttering ischemia or for new CVA. She has minimal movement in bed but able to walk with therapy. Echo showing essentially normal. MRI brain showng no acute changes, just old infarcts. CTA showing 60% LICA stenosis. TRC consult ordered. Neurology folowing. Spoke to her about stress causing conversion like symptoms. She is under a fair amount of stress. (2) Chest pain: Qualifiers: Chest pain type: unspecified Qualified Code(s): R07.9 - Chest pain, unspecified Code(s): R07.9 - Chest pain, unspecified Status: Acute Assessment and Plan: EKG showing no definite ischemia. Trop negative x4. Nitroglycerin PRN available for chest pain. Cardiology has seen and nitrate added 10/12 but then stopped due to low bp and with no improvement of CP. CP atypical. Consider GI etilogy. Will consult GI for possible EGD. NPO after MN. (3) Diabetes mellitus: Qualifiers: Diabetes mellitus complication status: without complication Diabetes mellitus superintendent marine oil terminal insulin use: with superintendent marine oil terminal use Diabetes mellitus type: type 2 Qualified Code(s): E11.9 - Type 2 diabetes mellitus without complications; Z79.4 - joint terminal attack controller (current) use of insulin Code(s): E11.9 - Type 2 diabetes mellitus without complications Status: Chronic Assessment and Plan: A1c 8.0. Glucose reviewed on 10/15/19. Glucose mostly well controlled. Continue Accuchecks with SSI coverage. Continue Lantus. Hypoglycemic protocol available as needed. (4) HTN (hypertension) with goal to be determined: Code(s): I10 - Essential (primary) hypertension Status: Chronic Assessment and Plan: BP reviewed on 10/15/19. BP was elevated initially but now low at times. Mediations restarted but dose has since been decrease. Currently on Norvasc 10mg, Lisinopril 20mg and Toprol XL 50mg. Continue to monitor for now. (5) Neuropathy: Code(s): G62.9 - Polyneuropathy, unspecified Status: Chronic Assessment and Plan: Neurology feels this is major factor in her symptoms. MRI cspine today showing mild to mod cervical spondylosis. Continue PT/OT. Subjective Date/time seen: 10/15/19 16:56 Interval history: 59yo female with hx of CAD here for paresthesias and weakness of left arm and leg and substernal chest pressure. Assuming care. Chart reviewed. Patient states the chest 'pressure' is constant with nothing making it better or worse. Feels like a 'bubble' but belching does not make it better. Lifelong nonsmoker. No hx of PUD. Last BM was earlier today. Complaining of numbness left side of mouth that radiates down left arm Exam Narrative: Exam Narrative: AF 98.2 127/45 66 20 Gen - NARD CHest - CTA bilaterally, nml RR CV - RRR S1/S2; Tele showing no signifincat dysrhythmias Abd - soft, NT/ND, +BS Ext - no pedal edema Neuro - left hip flex 1/6. Dorsi and plantar flexion 2/6. no hyperreflexia patella or AJ. When walking into the room, patietn grabbing ipad but left retail sales teammate 3-4/5 on exam. Psych - anxious Objective Data Vital Signs Vital Signs: Vital Signs - 24 hr 10/14/19 18:00 10/14/19 20:00 10/14/19 20:15 Temperature 97.4 F L Pulse Rate 84 70 72 Respiratory Rate 18 Blood Pressure 117/63 Pulse Oximetry 99 10/14/19 22:00 10/14/19 23:58 10/15/19 00:00 Temperature 96.6 F L Pulse Rate 61 67 62 Respiratory Rate 16 Blood Pressure 105/55 L Pulse Oximetry 98 10/15/19 02:00 10/15/19 04:00 10/15/19 06:00 Temperature 97.7 F Pulse Rate 60 60 79 Respiratory Rate 18 Blood Pressure 122/71 Pulse Oximetry 99 10/15/19 07:47 10/15/19 08:00 10/15/19 10:00 Temperature 97.8 F Pulse Rate 66 74 84 Respiratory Rate 16 Blood Pressure 103/60 Pulse Oxime
[2019-10-15] MEDS: SIMETHICONE 80 MG TAB.CHEW PO ×2 (17:42→20:58)
[2019-10-15 20:32] LABS: Glucose Point of Care 178 (65-105)
[2019-10-15] MEDS: TICAGRELOR 90 MG TABLET PO (20:57)
[2019-10-15] MEDS: ATORVASTATIN 20 MG TABLET PO (20:57)
[2019-10-15] MEDS: amLODIPine BESYLATE 5 MG TABLET 10 MG PO (20:57)
[2019-10-15] MEDS: lisinopriL 20 MG TABLET PO (20:57)
[2019-10-15] MEDS: INSULIN GLARGINE (*BKC) 100 UNITS/ML 25 UNITS SUB-Q (20:59)
[2019-10-15 23:51] LABS: Glucose Point of Care 132 (65-105)
[2019-10-16] VITALS: PULSE 64
[2019-10-16 02:00] VITALS: PULSE 58
[2019-10-16 04:00] VITALS: BP 144/90; PULSE 61; PULSE 70; RESP 20; TEMP 36.7; O2SAT 94
[2019-10-16 05:14] LABS: Hemoglobin 10.6 g/dL (12.0-15.0); Mean Corpuscular HGB Conc 33.1 g/dl (32-36); Mean Corpuscular Hemoglobin 28.6 pg (26-34); Mean Corpuscular Volume 86.5 fl (80-100); Mean Platelet Volume 11.4 fl (7.4-10.4); Platelet Count Result 196 k/mm3 (150-375); Red Cell Distribution Width 12.3 % (11.5-14.5); White Blood Count 6.4 K/mm3 (4.5-10.0)
[2019-10-16 05:35] LABS: Blood Urea Nitrogen 12 mg/dL (7-17); Calcium 9.1 mg/dL (8.4-10.2); Carbon Dioxide 25 mmol/L (22-30); Chloride 109 mmol/L (98-107); Estimated CRCL calculation 91 ml/min; Estimated Glomerular Filt Rate > 60; Glucose 65 mg/dL (65-105); Potassium 3.5 mmol/L (3.4-5.0); Sodium 140 mmol/L (137-145)
[2019-10-16 05:59] LABS: Iron 70 ug/dL (37-170)
[2019-10-16 06:00] VITALS: PULSE 56
[2019-10-16 06:08] LABS: Percent Iron Saturation 22 % (20-50)
[2019-10-16 06:36] LABS: Folic Acid 13.4 ng/mL (2.76->20)
[2019-10-16 06:43] LABS: Glucose Point of Care 74 (65-105)
--- NOTE | 2019-10-16 10:41 | PM.DS ---
DS: Admitting Diagnosis Admitting Diagnosis Admitting Diagnosis: Cerebral infarction, unspecified DS: Discharge Diagnosis Discharge Diagnosis (1) Ischemic stroke: Code(s): I63.9 - Cerebral infarction, unspecified Status: Acute Assessment and Plan: Patient presents with left sided weakness. CT brain showing no acute findings. Echo showing essentially normal. MRI brain without and with contrast showing no acute changes, just small old left cerebellar CVA. CTA showing 60% LICA stenosis. Neurology following and felt symptoms related to neuropathy. Evaluation was ongoing still. TSH, B12 and folate level okay. Iron studies normal. Patient was unhappy with the slow progress and inability to find an answer for her symptoms so she decided to sign out against medical advise. Spoke with her about the risks and discussed with in the room with patient permission. Web Feeder also talked with patient prior to her leaving (2) Chest pain: Qualifiers: Chest pain type: unspecified Qualified Code(s): R07.9 - Chest pain, unspecified Code(s): R07.9 - Chest pain, unspecified Status: Acute Assessment and Plan: EKG showing no definite ischemia. Trop negative x4. Nitroglycerin PRN available for chest pain. Cardiology following and nitrate added 10/12 but then stopped due to low BP and with no improvement of CP. CP atypical inn nature so consider GI etiology. GI was consulted for possible EGD today but patient did not want any further evaluation. (3) Diabetes mellitus: Qualifiers: Diabetes mellitus complication status: without complication Diabetes mellitus carpenter inspector insulin use: with correction use Diabetes mellitus type: type 2 Qualified Code(s): E11.9 - Type 2 diabetes mellitus without complications; Z79.4 - compliance review officer (current) use of insulin Code(s): E11.9 - Type 2 diabetes mellitus without complications Status: Chronic Assessment and Plan: A1c 8.0. Glucose monitored closely. Glucose mostly well controlled. Accuchecks with SSI coverage. We continued Lantus. Hypoglycemic protocol was available as needed. (4) HTN (hypertension) with goal to be determined: Code(s): I10 - Essential (primary) hypertension Status: Chronic Assessment and Plan: BP monitored. BP was elevated initially but now low at times. Mediations restarted and adjusted per cardiology. (5) Neuropathy: Code(s): G62.9 - Polyneuropathy, unspecified Status: Chronic Assessment and Plan: Neurology feels that neuropathy is causing a majority of her symptoms. MRI C-spine showing mild to mod cervical spondylosis. She was treated with PT/OT. DS: Summary Hospital Course Reason for hospitalization: 59yo female here for left sided weakness. Please see H&P for details. Hospital Course: As above Time Spent with Patient Time attestation: Total time spent providing and/or coordinating discharge services:34 minutes Time spent: Greater than 30 minutes Specific discharge activities: Discussed with Cardiology. Discussed with patient. all questions were answered. Discussed with nursing about making sure patient has a safe discharge given her weakness. Exam Narrative: Exam Narrative: AF 98.2 144/90 56 Gen - NARD sitting up on the couch DS: Data Data Completed and Pending Labs on day of discharge: Labs from last 24 hours 10/16/19 10/16/19 10/16/19 06:40 04:23 04:23 WBC RBC Hgb Hct MCV MCH MCHC RDW Plt Count MPV Sodium 140 Potassium 3.5 Chloride 109 H Carbon Dioxide 25 BUN 12 Creatinine 0.60 L Estim Creat Clear Calc 91 Estimated GFR > 60 Glucose 65 POC Capillary Glucose 74 Calcium 9.1 Iron 70 TIBC 321 % Saturation 22 Ferritin 60.10 Troponin I Vitamin B12 493.0 Folate 13.4 10/16/19 10/15/19 10/15/19 04:23 23:16 20:
--- NOTE | 2019-10-16 10:51 | PM.PNCARD ---
Progress Note: A&P Assessment and Plan (1) Chest pain: Qualifiers: Chest pain type: unspecified Qualified Code(s): R07.9 - Chest pain, unspecified Code(s): R07.9 - Chest pain, unspecified Status: Acute Assessment and Plan: still having chest pain. Hx of CABG 2012 and PCI 2017 in OSH, no elevated trop, no dynamic EKG changes. MRI 10/13/2019:Small old infarct in left cerebellum. CT of the neck 10/13/2019: 0% stenosis of the proximal right internal carotid artery relative to normal distal artery lumen diameter (NASCET criteria). 60% stenosis of the proximal left internal carotid artery relative to normal distal artery lumen diameter. she is continuing to have pain. I have talked her and have advised that she not leave against medical advice but she and her have decided to leave. as detailed yesterday, was planning on performing at least a stress test today and there was a GI evaluation planned. I did talk to her about the need for follow-up with Dr. Valle or our nurse practitioner in the office [place]. I have also advised that if her chest pain continues or worsens in any way, she should go to the most immediate emergency department for further workup and evaluation. I also advised that if she did not want to have her care performed here and then she should consider going to a different hospital if needed given her ongoing symptoms. She and her verbalized understanding of all the above. We will send in a nitroglycerin prescription to her pharmacy 0.4 mg sublingual p.r.n. chest pain. Further workup of her left-sided weakness and paresthesias per the neurologist and hospitalist. (2) Palpitation: Code(s): R00.2 - Palpitations Status: Acute Assessment and Plan: She states that she has been having palpitations since admission. These have increased in frequency at home as well. (3) Left-sided weakness: Code(s): R53.1 - Weakness Status: Acute Assessment and Plan: still uncertain as to etiology. Neurology following (4) CAD (coronary artery disease): Code(s): I25.10 - Atherosclerotic heart disease of [place] coronary artery without angina pectoris Status: Acute Assessment and Plan: continue dual anti-platelet therapy and current regimen. Subjective Date/time seen: 10/16/19 10:51 Interval history: Follow-up for: History of coronary disease and cerebrovascular disease admitted with paresthesias and weakness of left arm and leg and substernal chest pressure. Date of service: 10/16/2019 Subjective: Still having chest pain. Troponins were negative low yesterday. EKG showed no acute ST abnormalities. still having weakness issues involving the left side Review of Systems Review of Systems: All systems reviewed & are unremarkable except as noted in HPI and below Constitutional: Constitutional: Reports fatigue, Reports headache(s) and Reports weakness Eyes: Eyes: Denies blurry vision ENT: Reports Normal hearing present, Denies dysphagia, Denies dizziness and Reports headache(s) Cardiovascular: Cardiovascular: Reports chest pain (Chest pressure that has been present since admission), Denies pedal edema, Denies lightheadedness, Denies dyspnea and Reports other (Intermittent palpitations.) Respiratory: Respiratory: Denies dyspnea Gastrointestinal: Gastrointestinal: Reports bloating, Denies dysphagia, Denies nausea, Denies vomiting and Reports other (Feels full early when eating) Genitourinary: Genitourinary: Denies hematuria Musculoskeletal: Musculoskeletal: Reports abnormal gait (Related to left-sided weakness), Reports numbness (Left side) and Reports tingling (Left side) Integumentary/Breasts: Skin/Breast: Denies pruritus, Denies erythema and Denies rash Neurologic: Reports Normal hearing present, Reports abnormal gait (Related to left-sided weaknes
--- NOTE | 2019-10-16 20:14 | PC.NURSE ---
I Went into Patients room to do her morning assessment and patient was visibly upset. She refused her morning assessment and medications. She had removed her telemetry and stated she was leaving the hospital because she felt she was not being listened to. Patient stated that she felt nobody believed her symptoms and felt she was not being taken seriously. I tried to console patient and she said she was not changing her mind and her was on his way to get her. I notified Meagan Chavez the ICU/IMU nurse redevelopment manager about the sitaution and she came to speak with the patient personally. After listening to the patient and talking with her Meagan notified the Doctors involved and patient advocacy. There has been a report filled. I expressed to the patient my concern for her safety due to her left sided weakness. I asked the patient if she would have help at home, she stated her who is a language path would be home with her for some time. The patient stated she would buy a walker to aid her weakness as soon as they left the hospital. I contacted Wendy with care coordination and she came to speak with Cesar about home health. They decided [facility] would be the best choice and Wendy said she would handle the necessary paperwork. I again expressed my concern for the patients safety and the patient stated her would be taking her directly to [facility] in [place] for immediate care. The patient signed an Against Medical Advice form and was informed that it was not medically advisable for her leave the hospital with her current symptoms. The patient insisted on leaving the hospital. I have faxed the necessary paperwork to [facility] for Follow-up.
--- NOTE | 2019-11-12 06:10 | WPDPN ---
Objective Data Meds/Results Radiology Results: ITS Impressions Head CT 10/13/19 08:48 IMPRESSION: 1. No acute intracranial abnormality. Brain MRI 10/13/19 14:56 IMPRESSION: 1. Small old infarct in left cerebellum. Neck CTA 10/13/19 15:03 IMPRESSION: 1. 0% stenosis of the proximal right internal carotid artery relative to normal distal artery lumen diameter (NASCET criteria). 2. 60% stenosis of the proximal left internal carotid artery relative to normal distal artery lumen diameter. Cervical Spine MRI 10/14/19 13:32 IMPRESSION: 1. Mild to moderate cervical spondylosis. Quality VTE Prophylaxis VTE prophylaxis: mechanical ordered Subjective Date/time seen: 11/12/19 06:10 patient signed out AMA and I was unable to see patient for consult
== END 2019-10-16 10:20 | disposition left against medical advice (07) | DRG 74 ==
LOC: ANHED 23:43 → ANHIMU 10-13 00:22
PROVIDERS: Internal Medicine; Internal Medicine Cardiovascular Disease; Admitting Provider Family Medicine; Emergency Provider Emergency Medicine; PCP Family Medicine; Visit Provider Internal Medicine
DX: E11.42 Type 2 diabetes mellitus with diabetic polyneuropathy (principal); R53.1 Weakness; R07.89 Other chest pain; I10 Essential (primary) hypertension; I65.22 Occlusion and stenosis of left carotid artery; I67.9 Cerebrovascular disease, unspecified; M47.812 Spondylosis without myelopathy or radiculopathy, cervical region; M85.80 Other specified disorders of bone density and structure, unspecified site; I25.10 Atherosclerotic heart disease of native coronary artery without angina pectoris; R00.2 Palpitations; Z79.4 Long term (current) use of insulin; Z79.82 Long term (current) use of aspirin; Z95.1 Presence of aortocoronary bypass graft; Z86.73 Personal history of transient ischemic attack (TIA), and cerebral infarction without residual deficits; Z95.5 Presence of coronary angioplasty implant and graft
CPT/HCPCS: 36415; 70450; 70498; 70553; 72141; 80048; 80053; 80061; 82607; 82728; 82746; 83036; 83540; 83550; 83735; 84100; 84443; 84484; 85025; 85027; 85610; 85652; 85730; 93005; 96360; 96375; 97110; 97116; 97162; 97165; 97530; 97535; 99285; A9270; A9577; C8929; C9113; G0378; J1815; J7030; J7120; Q9957; Q9967

== ENCOUNTER 2020-03-09 09:00 | Outpatient (RCR) | payer OTHER, SELFPAY ==
[2019-12-10 08:15] VITALS: PULSE 75; RESP 16; TEMP 36.3; O2SAT 98
[2019-12-10 08:26] VITALS: BP 138/80
[2019-12-10 09:29] VITALS: PULSE 86
--- NOTE | 2019-12-16 08:13 | PCCPR ---
Absent today, not feeling well.
--- NOTE | 2020-01-06 14:57 | PCCPR ---
Absent Arcelia was absent on 01/02/20 due to MD jackson however she did not call or show today. Message left to check on her. Requesting her to call us back for an update.
--- NOTE | 2020-01-20 09:35 | PCCPR ---
Absent Arcelia called she is not feeling well today. States she has an MD apt on Wed prescheduled she may be absent. Offered a couple of available class times if unable to make her regular time.
--- NOTE | 2020-02-12 08:11 | PCCPR ---
Absent-Arcelia called in stating she is having a lot of stomach issues and is trying to get into the doctor. Will be absent all week.
== END 2020-03-09 23:59 | disposition home or self-care (01) ==
LOC: ANHCPREHAB 09:00
PROVIDERS: PCP Family Medicine; Visit Provider Internal Medicine Cardiovascular Disease
DX: Z95.1 Presence of aortocoronary bypass graft (principal); Z95.5 Presence of coronary angioplasty implant and graft
CPT/HCPCS: 93798

== ENCOUNTER 2020-03-18 09:00 | Outpatient (RCR) | payer OTHER, SELFPAY | END 2020-03-30 09:02 | disposition home or self-care (01) | LOC: ANHCPREHAB 09:00 | PROVIDERS: PCP Family Medicine; Visit Provider Internal Medicine Cardiovascular Disease | DX: Z95.5 Presence of coronary angioplasty implant and graft (principal) | CPT/HCPCS: 93798 ==

== ENCOUNTER 2020-08-19 10:07 | Outpatient (CLI) | payer OTHER, SELFPAY ==
--- NOTE | ~2020-08-19 | MM_ITS ---
EXAMINATION: MM screening [facility] w chris HISTORY: Screening mammogram TECHNIQUE: Craniocaudal and mediolateral oblique 3-D tomosynthesis images were obtained and synthetic 2-D images were generated. CAD analysis was submitted and interpreted. COMPARISON: 03/23/2019 BREAST PARENCHYMAL COMPOSITION: There are scattered areas of fibroglandular density. FINDINGS: There is no evidence of suspicious mass, calcification, or architectural distortion to sugg est malignancy in either breast. There has been no suspicious interval change. IMPRESSION: 1. No mammographic evidence of malignancy. 2. Recommend routine screening mammography in one year. BI-RADS Category 1: Negative Reviewed, dictated and finalized at location A.
== END 2020-08-19 10:08 | disposition home or self-care (01) ==
LOC: ANHIMG 10:12
PROVIDERS: PCP Family Medicine; Visit Provider Family Medicine
DX: Z12.31 Encounter for screening mammogram for malignant neoplasm of breast (principal)
CPT/HCPCS: 77063; 77067

== ENCOUNTER 2021-10-26 09:47 | Outpatient (CLI) | payer OTHER, SELFPAY ==
--- NOTE | ~2021-10-26 | MM_ITS ---
EXAMINATION: MM screening [facility] BI w chris HISTORY: Screening TECHNIQUE: Craniocaudal and mediolateral oblique 3-D tomosynthesis images were obtained and synthetic 2-D images were generated. CAD analysis was submitted and interpreted. COMPARISON: Comparison to multiple prior studies sequentially, with oldest reviewed study dated 02/25. BREAST PARENCHYMAL COMPOSITION: There are scattered areas of fibroglandular density. FINDINGS: There is no evidence of suspicious mass, calcification, or architectural distortion to sugg est malignancy in either breast. There has been no suspicious interval change. IMPRESSION: 1. No mammographic evidence of malignancy. 2. Recommend routine screening mammography in one year. BI-RADS Category 1: Negative Reviewed, dictated and finalized at location A.
== END 2021-10-26 09:48 | disposition home or self-care (01) ==
PROVIDERS: PCP Family Medicine; Visit Provider Family Medicine
DX: Z12.31 Encounter for screening mammogram for malignant neoplasm of breast (principal)
CPT/HCPCS: 77063; 77067

== ENCOUNTER 2024-08-09 09:41 | Outpatient (CLI) | payer MEDICARE, OTHER, SELFPAY ==
--- NOTE | ~2024-08-09 | MM_ITS ---
EXAMINATION: MM screening xenia BI w chris HISTORY: Screening TECHNIQUE: Craniocaudal and mediolateral oblique 3-D tomosynthesis images were obtained and synthetic 2-D images were generated. CAD analysis was submitted and interpreted. COMPARISON: Comparison to multiple prior studies sequentially, with oldest reviewed study dated 02/25. BREAST PARENCHYMAL COMPOSITION: Not dense: There are scattered areas of fibroglandular density. FINDINGS: There is no evidence of suspicious mass, calcification, or architectural distortion to sugg est malignancy in either breast. There has been no suspicious interval change. IMPRESSION: 1. No mammographic evidence of malignancy. 2. Recommend routine screening mammography in one year. BI-RADS Category 1: Negative Reviewed, dictated and finalized at location A.
--- OUTSIDE RECORDS SUMMARY | 2024-08-09 09:55 | XMS_ITS | Clinical Summary ---
Author Organization [facility] [address] Address [address] [place] [address] Care Team Providers Care Open Hearth Laborer Name Role Phone Yudi Loco MD Unavailable [phone] Brianna Cano MD Unavailable [phone] Harshil Claros MD Unavailable [phone] Ruthie Valle MD Unavailable [phone] Yudi Loco MD Primary Care Provider + Allergies Active Allergy Reactions Criticality Noted Date Comments Atorvastatin Muscle pain Medium 12/03/2019 Leg pain and cramps Rosuvastatin Muscle pain Medium 12/03/2019 Leg pain and cramps Medications aspirin 81 mg tablet take 1 tablet by oral route every day 0 0 3 Active Additional Information Patient taking differently:81 mgoral Nightly, Indications: Myocardial Reinfarction Prevention, prevention of thrombosis, Informant: Self, Reported on 03/22/2023 TRULICITY 1.5 mg/0.5 mL pen injectorIndicati ons:type 2 diabetes mellitus Inject 0.5 mL (1.5 mg total) under the skin once a week MONDAYS 2 9 Active metFORMIN XR (GLUCOPHAGE XR) 500 mg 24 hr tabletIndication s:type 2 diabetes mellitus Take 1 tablet (500 mg total) by mouth 2 (two) times a day 4 9 Active metoprolol XL (TOPROL-XL) 50 mg 24 hr tabletIndication s:Atherosclerosi s of [place] coronary artery of [place] heart without angina pectoris Take 1 tablet (50 mg total) by mouth 2 (two) times a day 180 tablet 3 0 Active Additional Information Patient taking differently:50 mg oral 2 times daily,Indications: hypertension, Informant: Self, Reported on 03/22/2023 amLODIPine-benaz epriL (LOTREL) 10-20 mg per capsuleIndicatio ns:Essential hypertension TAKE 1 CAPSULE BY MOUTH EVERY NIGHT 90 capsule 1 Active Additional Information Patient taking differently: 1 capsule oral Nightly, Indications: hypertension, Informant: Self, Reported on 03/22/2023 ezetimibe (ZETIA) 10 mg tabletIndication s:hyperlipidemia Take 1 tablet (10 mg total) by mouth nightly Active insulin glargine (insulin glargine) 100 unit/mL vial for injectionIndicat ions:diabetes Inject 32 Units under the skin nightly Active ergocalciferol (VITAMIN D) 50,000 unit capsuleIndicatio ns:Vitamin D Deficiency Take 1 capsule (50,000 Units total) by mouth once a week Take on Monday Active isosorbide mononitrate ER (IMDUR) 60 mg 24 hr tabletIndication s:htn Take 1 tablet (60 mg total) by mouth every morning Active Repatha SureClick 140 mg/mL pen injectorIndicati ons:hypercholest erolemia Inject 1 mL (140 mg total) into the muscle as instructed every 14 (fourteen) days 3 Active minoxidiL (LONITEN) 2.5 mg tabletIndication s:hypertension Take 1 tablet (2.5 mg total) by mouth every morning 3 Active HYDROcodone-acet aminophen (NORCO) 5-325 mg per tabletIndication s:Pain Take 1 tablet by mouth every 6 (six) hours as needed for pain 30 tablet 4 Active Vascepa 1 gram capsule Take 2 capsules (2 g total) by mouth 2 (two) times a day 4 Active Brilinta 60 mg tablet Take 1 tablet (60 mg total) by mouth 2 (two) times a day 4 Active ferrous sulfate 325 mg (65 mg of elemental iron) tablet 1 tablet (325 mg total) 4 Active methylPREDNISolo ne (MEDROL DOSEPACK) 4 mg Dosepack Take 1 tablet (4 mg total) by mouth daily Use as directed by package instructions 21 tablet 4 Active Active Problems Problem Noted Date Diagnosed Date Ascending aorta dilatation 11/24/2023 Dizziness 11/24/2023 Fatigue 11/24/2023 Orthostatic hypotension 11/24/2023 Arthritis of carpometacarpal (CMC) joint of righ t thumb 03/02/2023 Right carpal tunnel syndrome 03/02/2023 Constipation 02/07/2023 Gastroparesis 02/07/2023 Generalized hyperreflexia 02/07/2023 GERD (gastroesophageal reflux disease) High calcium levels 02/07/2023 Insomnia 02/07/2023 Migraine headache 02/07/2023 Neuropathy 02/07/2023 Obstructive sleep apnea syndrome 02/07/2023 Depressive disorder 06/17/2022 Traumatic incomplete tear of left rotator cuff 0 07/06/2021 Overview (07/06/2021): Added automatically from request for surgery [id number] Carotid atherosclerosis, left 11/15/2019 Colitis 11/15/2019 Left-sided weakness 11/15/2019 Chest discomfort 11/13/2019 Left carotid bruit 02/11/2019 Coronary artery disease of n ative artery of [place] heart with stable angina pectoris 07/04/2017 Assessment & Plan (07/04/2017 8:01 PM CDT): Patient found to have multivessel coronary artery disease when she was only 53 years old, status post CABG 2013. It appears that the SVG to the CT0 RCA was occluded, and she had 2 DARREL to the RCA (versus RCA graft?) in September 2016. She continues to have some exertional angina although improved compared to last summer. Will continue with her aggressive risk factor reduction. BP and diabetes are usually under good control per the patient; lipids are under as good a control as I think we can get them. Statin intolerance 07/04/2017 Assessment & Plan (07/04/2017 7:51 PM CDT): Intolerant to atorvastatin and rosuvastatin as well as Zetia. History of CVA (cerebrovascular accident) 2017 Assessment & Plan (07/04/2017 7:56 PM CDT): Patient reports a TIA although it sounds more like a minor CVA perhaps with some mild hemorrhage, in 2016, causing diplopia. Hypertension associated with diabetes 07/04/2017 Overview (07/04/2017): BP not at goal today but this is patient's 1st visit. However it was not at goal when she saw Dr. Torres recently, either. Abnormal mammogram of right breast 05/30/2017 Assessment & Plan (05/30/2017 1:45 PM DIRECTOR OF ORTHOPEDICS): Mar 2017 Needs 6 month follow-up (September 2017) Release for prior records. Class 1 obesity due to exces s calories with serious comorbidity and body mass index (BMI) of 30.0 to 30.9 in adult 05/30/2017 Assessment & Plan (05/30/2017 2:02 PM DIRECTOR OF ORTHOPEDICS): Obesity is newly identified. Discussed the patient's BMI. The BMI is above average; BMI management plan is completed. General weight loss/lifestyle modification strategies discussed (elicit support from others; identify saboteurs; non-food rewards, etc). Body mass index is 30.73 kg/m . Atherosclerosis of coronary artery 06/05/2013 Type 2 diabetes mellitus with other specified co mplication 09/21/2012 Assessment & Plan (05/30/2017 2:07 PM DIRECTOR OF ORTHOPEDICS): Multiple new medical complaints today, most concerning of which is the headaches. Only prior records avail are from 2013 and earlier. Nothing more recent despite looking in [employer], [employer] system, and care everywhere in [place]. Apparently had head imaging in 2016 that showed history of stroke. Cardiac stents placed within the last 12 months. Labs done today at [facility] office. No new meds or stressors in the last 2 months to explain the headaches, although they do seem to be in a tension pattern Patient does say that her eye exam is up to date with no evidence of diabetic retinopathy She does not feel like her DMT2 is well controlled, but she is unsure what her most recent HgbA1c was. Will await today's lab results and prior records. Instructed patient to call office if headaches worsen or change. Mixed hyperlipidemia 09/21/2012 Assessment & Plan (07/04/2017 7:50 PM CDT): Severe hyperlipidemia. POC lipids today: Total cholesterol 195, HDL 90, TG 143, LDL 76. Pretty good on Praluent. Resolved Problems Problem Noted Date Diagnosed Date Resolved Date Angina pectoris, unstable 07/04/2017 Immunizations Immunization Administration Dates Next Due Influenza, Trivalent, IM (MDV) 12/25/2012,2011 Influenza, Unspecified 11/30/2016 Pfizer SARS-CoV-2 Monovalent Vaccination (12+ Yrs) PURPLE 01/27/2021,06/26/2020,06/05/2020 Tdap 09/21/2012 Surgical History Surgery Date Site/Laterality Comments HYSTERECTOMY 03/27/1996 - 03/26/1997 CORONARY ARTERY BYPASS GRAFT 09/24/2012 - 10/24/2012 CARDIAC STENT PLACEMENT 10/07/2016 2 STENTS PARATHYROIDECTOMY 06/24/2013 FLUORO GUIDED INJECTION SHOU LDER LEFT 07/14/2020 Left FLUORO GUIDED INJECTION SHOU LDER LEFT 01/05/2021 Left ANKLE ARTHRODESIS 03/27/2007 - 03/26/2008 Right CARDIAC STENT PLACEMENT 11/25/2019 1 STENT ABDOMINOPLASTY 03/27/2004 - 03/26/2005 Medical History Medical History Date Comments Hyperlipidemia Diabetes mellitus (HCC) Hypertension Hx Other Medical 2012 bypass Disorder of thyroid 2013 thyroid dise ase Cardiovascular disease 09/2016 DARREL to A? X2 Hx of migraine headaches TIA (transient ischemic attack) 2016 Diplopia Neuropathy Type 2 diabetes mellitus (HCC) Family History Medical History Relation Name Comments Cancer Father Ovarian cancer Maternal Grandmother COPD Mother Hypertension Mother Anesthesia problems Neg Hx Breast cancer Neg Hx Colon cancer Neg Hx Relation Name Status Comments Father (Age 52) Throat CA Maternal Grandmother Mother Alive Social History Tobacco Use Types Packs/Day Years Used Date Smoking Tobacco: Never Smokeless Tobacco: Never Tobacco Cessation:Counseling Given: Not Answered Alcohol Use Standard Drinks/Week Comments No 0 (1 standard drink = 0.6 oz pur e alcohol) AUDIT-C Answer Date Recorded Q1: How often do you have a drink containing alcohol? Never 04/12/2023 Q2: How many drinks containi ng alcohol do you have on a typical day when you are drinking? Patient does not drink Q3: How often do you have si x or more drinks on one occasion? Never 04/12/2023 Personal Safety Answer Date Recorded Have you ever been in or are you currently in a harmful physical or emotional relationship or is someone making you feel afraid or unsafe? Denies 04/12/2023 Comments No Sex and Gender Information Value Date Recorded Sex Assigned at Not on file Legal Sex Female 1:40 AM DIRECTOR OF ORTHOPEDICS Gender Identity Not on file Sexual Orientation Not on file Occupation Industry Job Start Date Job End Date Not on file Not on file Not on file Not on file Obstetrics History Last Filed Vital Signs Vital Sign Reading Time Taken Comments Blood Pressure 115/70 04/12/2023 12:50 PM DIRECTOR OF ORTHOPEDICS Pulse 79 04/12/2023 1:00 PM DIRECTOR OF ORTHOPEDICS Temperature 36.2 C (97.2 F) 04/12/2023 1:00 PM DIRECTOR OF ORTHOPEDICS Respiratory Rate 17 04/12/2023 1:00 PM DIRECTOR OF ORTHOPEDICS Oxygen Saturation 97% 04/12/2023 1:00 PM DIRECTOR OF ORTHOPEDICS Inhaled Oxygen Concentration - - Weight 79.4 kg (175 lb) 04/12/2023 7:45 AM DIRECTOR OF ORTHOPEDICS Height 162.6 cm (5' 4 ) 04/12/2023 7:45 AM DIRECTOR OF ORTHOPEDICS Body Mass Index 30.04 04/12/2023 7:45 AM DIRECTOR OF ORTHOPEDICS Plan of Treatment Health Maintenance Due Date Last Done Comments Albumin Creatinine Ratio, Urine 1960 Colon Cancer Screening-Colonoscopy 1960 Hemoglobin A1C 1960 Hepatitis C Screening 1960 Dilated Eye Exam 1960 Hepatitis B Screening 1978 Regular Well Visit/Exam 18-64 1978 Zoster Vaccine (1 of 2) 2010 Depression Screening 05/30/2018 05/30/2017 Foot Exam 05/30/2018 05/30/2017 eGFR 08/26/2019 08/25/2018 Lipid Panel 02/23/2020 02/22/2019, 06/0 03/2018, 03/26/2018, Additional history exists Breast Cancer Screening-Mammogram 10/26/2022 022, 03/31/2017 Covid-19 Vaccine (2023- 5 season) 2023 01/31/2022, 01/27/2021, 06/26/2020, Additional history exists Influenza Vaccine (Season Ended) 2024 01/27/2022, 01/26/2021, 01/13/2020, Additional history exists Pneumococcal vaccine <65 (3 of 3 - PCV20 or PCV21) 01/30/2025 01/31/2020, 01/22/2019, 03/01/2017, Additional history exists DTaP/Tdap/Td Vaccine (5 - Td or Tdap) 01/26/2031 01/26/2021, 06/15/2017, 06/15/2017, Additional history exists Medical Devices Implanted Type [employer] Device Identifier Shelf Expiration Date Model / Serial / Lot [employer] Corkscrew Suturetape 5.5mm 14.7mm Bioabsorbable Full Thread 1.3mm [id number] - [id number] Implanted:Qty: 1 on 08/06/2021 by Arben Choi MD at [facility] Other - see comments Left: Shoulder [employer] 01/24/[id number] / / [id number] [employer] Ar-2324 Bcm Swivelock 4.75mm 24.5mm Self Punch Vent Shoulder [place] Suture - S0 - [id number] Implanted:Qty: 1 on 08/06/2021 by Arben Choi MD at [facility] Other - see comments Left: Shoulder [employer] 03/26/2025 AR-2324B CM / 0 / [id number] Description:Suture [place] [employer] Ar-2324 Bcm Swivelock 4.75mm 24.5mm Self Punch Vent Shoulder [place] Suture - S0 - [id number] Implanted:Qty: 1 on 08/06/2021 by Arben Choi MD at [facility] Other - see comments Left: Shoulder [employer] 03/26/2025 AR-2324B CM / 0 / [id number] Description:Suture [place] Stent-10/07/2016 Implanted:Qty: 2 on 10/07/2016 Stent N/A: Heart Stent-11/25/2019 Implanted:Qty: 1 on 11/25/2019 Stent Heart Synergy [employer] Heart [employer] Corkscrew Fiberwire 2.7mm 7mm 17.9mm Needle Wire Foot Ankle 2-0 [id number] - [id number] Implanted:Qty: 2 on 04/12/2023 by Myron Encinas MD at [facility] Right: Wrist [employer] [id number] 11/25/2027 [id number] / / [id number] Procedures Procedure Name Priority Date/Time Associated Diagnosis Comments LIPID PANEL Routine 02/22/2019 9:06 AM DIRECTOR OF ORTHOPEDICS Mixed hyperlipidemia Statin intolerance Encounter for long-term (current) use of other medications COMPREHENSIVE METABOLIC PANEL Routine 08/25/2018 8:09 AM CDT Encounter for long-term (current) use of medications Hyperlipidemia, unspecified hyperlipidemia type Coronary artery disease of [place] heart with stable angina pectoris, unspecified vessel or lesion type SCREENING MAMMOGRAM 2D BILATERAL Schedule Routine, Read Routine (OP Routine) 03/31/2017 from Last 3 Months or Most Recently Relevant to Health Maintenance Results * (ABNORMAL) Lipid panel (02/22/2019 9:06 AM DIRECTOR OF ORTHOPEDICS) Cholesterol 201(H) 100 - 199 mg/dL [facility] - 01 Triglycerides 227(H) 0 - 149 mg/dL [facility] - 01 HDL Cholesterol 72 >39 mg/dL [facility] - 01 VLDL 45(H) 5 - 40 mg/dL [facility] - 01 LDL, calculated 84 0 - 99 mg/dL [facility] - 01 Blood specimen (specimen) 02/22/2019 9:06 AM DIRECTOR OF ORTHOPEDICS 02/22/2019 Narrative [facility] - 02/23/2019 5:06 AM DIRECTOR OF ORTHOPEDICS Performed at: - [facility] [address] [id number] Beck Tender: Sree Beasley PhD, Phone: [phone] us Ruthie Valle MD LAB BLOOD ORDERABLES Edited Result - Final [facility] - 01 * (ABNORMAL) Comprehensive metabolic panel (08/25/2018 8:09 AM CDT) [facility] Glucose 119(H) 65 - 99 mg/dL [facility] - 01 BUN 12 6 - 24 mg/dL [facility] - 01 Creatinine, Serum 0.93 0.57 - 1.00 mg/dL [facility] - 01 eGFR If NonAfricn Am 68 >59 mL/min/1.7 3 [facility] - 01 eGFR If Africn Am 78 >59 mL/min/1.7 3 [facility] - 01 BUN/creat ratio 13 9 - 23 [facility] - 01 Sodium 142 134 - 144 mmol/L [facility] - 01 Potassium, sr 4.6 3.5 - 5.2 mmol/L [facility] - 01 Chloride 105 96 - 106 mmol/L [facility] - 01 CO2 21 20 - 29 mmol/L [facility] - 01 Calcium 9.6 8.7 - 10.2 mg/dL [facility] - 01 Protein, sr 7.3 6.0 - 8.5 g/dL [facility] - 01 Albumin 4.5 3.5 - 5.5 g/dL [facility] - 01 Globulin, Total 2.8 1.5 - 4.5 g/dL [facility] - 01 A/G Ratio 1.6 1.2 - 2.2 [facility] - 01 Bilirubin, Total 0.3 0.0 - 1.2 mg/dL [facility] - 01 Alk phos 76 39 - 117 IU/L [facility] - 01 AST 17 0 - 40 IU/L [facility] - 01 ALT 14 0 - 32 IU/L [facility] - 01 Blood specimen (specimen) 08/25/2018 8:09 AM CDT 08/25/2018 Narrative [facility] - 08/26/2018 6:38 AM CDT Performed at: [facility] [id number] Beck Tender: Sree Beasley PhD, Phone: [phone] us Ruthie Valle MD LAB BLOOD ORDERABLES Final Result [facility] - 01 * Screening Mammogram 2D Bilateral (03/31/2017) SCRIBED BI-RADS 3 Anatomical Region Laterality Modality Breast Bilateral Mammography Historical Provider MD FLORES MAMMO PROCEDURES Alessandra l Result from Last 3 Months or Most Recently Relevant to Health Maintenance Insurance [facility] H[facility]/PPO Address: [address] [address] [place] [address] [facility] HMO/PPO Address: [address] [address] [place] [address] MEDICARE [facility] HMO/PPO Address: [address] [address] [place] [address] MEDICARE Care Teams Open Hearth Laborer Relationship Specialty Start Date End Date Yudi Loco MD [address] [place] [address] DR WEBBER [address] [place] [address] PCP - General 05/14/20 Yudi Loco MD Family Medicine 12/16/19 Brianna Cano MD [address] [place] [address] [address] WEBBER [address] [place], [place] [address] [address] Referring Physician Neurology 11/18/19 Harshil Claros MD [address] [place] [address] DR IKE Matute [address] [address] Referring Physician Gastroenterology 11/18/19 Ruthie Valle MD [address] [place] [address] DR IKE Matute [address] [address] Consulting Physician Cardiology 11/18/19
--- OUTSIDE RECORDS SUMMARY | 2024-08-09 09:55 | XMS_ITS | Clinical Summary ---
Author Organization [facility] Address [address] [place] [address] Phone Care Team Providers Care Hat Forming Machine Feeder Name Role Phone Unavailable Primary Care Provider Unavailabl e Encounters Date Type Department Care Team Description 07/19/2024 Telephone [facility] [address] [place] [address] Cheikh Mullins APRN, CNP from Last 3 Months Social History Tobacco Use Types Packs/Day Years Used Date Smoking Tobacco: Never Assessed Comments Unknown Sex and Gender Information Value Date Recorded Sex Assigned at Not on file Legal Sex Female 8:59 AM CDT Gender Identity Not on file Sexual Orientation Not on file Plan of Treatment Health Maintenance Due Date Last Done Comments Hepatitis C Virus (HCV) Screening 1960 Mammogram 1960 TdaP Immunization 1960 Pap Smear 1981 Cervical Cancer Screening (CCS) 1990 HPV/Cotest 1990 Colonoscopy 2005 Colorectal Cancer Screening 2005 Cologuard 2010 Immunochemical Fecal Occult Blood 2010 Pneumococcal Immunization (5 0+ years) (1 of 1 - PCV) 2010 Zoster Immunization (1 of 2) 2010 SARS-COV-2 Immunization ( - 2023-25 season) 2023 Influenza Immunization (Seas on Ended) 2024 Respiratory Syncytial Virus (RSV) Immunization (Adult) (1 - 1-dose 75+ series) 2035 Hepatitis B Immunization Aged Out No longer eligible based on patient's age to complete this topic Meningococcal Immunization (ACWY) Aged Out No longer eligible based on patient's age to complete this topic Rotavirus Immunization Aged Out No lo nger eligible based on patient's age to complete this topic
--- OUTSIDE RECORDS SUMMARY | 2024-08-09 09:55 | XMS_ITS | Clinical Summary ---
Author Organization [facility] Address [address] [address] Care Team Providers Care Loin Trimmer Name Role Phone Torie Del Castillo MD Primary Care Provider [phone] Robinson Castellanos DO Unavailable [phone] Source Comments [facility],non-owned Affiliates and Associated Physician Practices is amultiple site organization consisting of ambulatory clinics and hospital sitesin [place], [place], [place] and [place]. This disclosure is being madepursuant to the Care Everywhere program and may not contain all information available regarding this patient. Last updated 17.[facility] Allergies Active Allergy Reactions Criticality Noted Date Comments Atorvastatin Myalgias Medium 12/03/2019 Leg pain and cramps Rosuvastatin Myalgias Medium 12/03/2019 Leg pain and cramps Medications * Be aware that medications may not be up to date on this document. Alwaysverify current medications with the patient. PRALUENT 150 MG/ML injection Use 150 mL as directed 6 Active vitamin D, ergocalciferol, (DRISDOL) 55203 UNITS capsule Take 1 (one) capsule by mouth once daily 6 6 Active lisinopril (PRINIVIL; ZESTRIL) 20 MG tablet Take 1 (one) tablet by mouth once daily 6 Active metoprolol succinate XL 24hr (TOPROL XL) 100 MG tablet Take 1 (one) tablet by mouth once daily 3 6 Active aspirin (ASPIRIN) 81 MG tablet Take 81 mg by mouth Active insulin detemir (LEVEMIR FLEXTOUCH) pen 6 Active dapagliflozin-m etFORMIN ER 24hr (XIGDUO XR) 5-500 MG tablet 6 Active amLODIPine-josé zepril (Lotrel) 10-20 MG capsule Take 1 (one) capsule by mouth at bedtime 4 Active dulaglutide (Trulicity) 1.5 MG/0.5ML injection ADMINISTER 1.5 MG UNDER THE SKIN 1 TIME A WEEK Active evolocumab (Repatha SureClick) 140 MG/ML auto-injector ADMINISTER 1 ML UNDER THE SKIN EVERY 14 DAYS 3 Active ezetimibe (Zetia) 10 MG tablet Take 1 (one) tablet by mouth once daily 3 Active icosapent ethyl (Vascepa) 1 g capsule Take 2 (two) capsules by mouth 2 times daily 4 Active insulin glargine (Lantus SoloStar) pen ADMINISTER 32 UNITS UNDER THE SKIN EVERY DAY AT BEDTIME Active Brilinta 60 MG tablet Take 1 (one) tablet by mouth 2 times daily 3 Active Active Problems No known active problems Family History Medical History Relation Name Comments Cancer Father Diabetes Maternal Grandfather Heart Disease Maternal Grandfather Diabetes Maternal Grandmother Heart Disease Maternal Grandmother Diabetes Paternal Grandfather Diabetes Paternal Grandmother Relation Name Status Comments Father Maternal Grandfather Maternal Grandmother Paternal Grandfather Paternal Grandmother Social History Tobacco Use Types Packs/Day Years Used Date Smoking Tobacco: Never Smokeless Tobacco: Never Tobacco Cessation:Counseling Given: Not Answered Alcohol Use Standard Drinks/Week Comments No 0 (1 standard drink = 0.6 oz pur e alcohol) Comments Unknown Sex and Gender Information Value Date Recorded Sex Assigned at Not on file Legal Sex Female 5:57 AM JAR CAPPER Gender Identity Not on file Sexual Orientation Not on file Last Filed Vital Signs Vital Sign Reading Time Taken Comments Blood Pressure 142/89 05/30/2023 9:14 AM JAR CAPPER Pulse 80 05/30/2023 9:14 AM JAR CAPPER Temperature - - Respiratory Rate - - Oxygen Saturation 99% 05/30/2023 9:14 AM JAR CAPPER Inhaled Oxygen Concentration - - Weight 80.3 kg (177 lb) 05/30/2023 9:14 AM JAR CAPPER Height 162.6 cm (5' 4 ) 05/30/2023 9:14 AM JAR CAPPER Body Mass Index 30.38 05/30/2023 9:14 AM JAR CAPPER Plan of Treatment Health Maintenance Due Date Last Done Comments COLOGUARD (AGES 45-75) - COLON CA SCREENING 1960 COLON MONITORING 1960 COLONOSCOPY - COLON CA SCREENING 1960 CT COLONOGRAPHY - COLON CA SCREENING 1960 Colorectal Cancer Screening 1960 FIT - COLON CA SCREENING 1960 FLEX SIG - COLON CA SCREENING 1960 LIPID TESTING 1960 MAMMOGRAM 1960 MEDICARE AWV 12 MONTHS 1960 PAP SMEAR 1960 HIV SCREENING 1975 HEPATITIS C SCREENING 03/26/1978 DTAP/TDAP/TD VACCINES (1 - Tdap) 1979 PNEUMOCOCCAL VACCINE 50+ (1 of 1 - PCV) 2010 ZOSTER VACCINE (1 of 2) 2010 SCREENING FOR DIABETES 05/30/2023 COVID-19 VACCINE ( season) 2023 01/27/2021, 06/26/2020, 06/05/2020 DEPRESSION SCREENING 03/27/2024 INFLUENZA VACCINE (Season Ended) 2024 01/27/2022, 01/26/2021, 01/13/2020, Additional history exists Respiratory Syncytial Virus (RSV) Vaccine Pt: or over 60 yrs (1 - 1-dose 75+ series) 2035 HEPATITIS B VACCINE Aged Out No longe r eligible based on patient's age to complete this topic HIB VACCINE Aged Out No longer eligi ble based on patient's age to complete this topic HPV VACCINE Aged Out No longer eligi ble based on patient's age to complete this topic MENINGOCOCCAL (Group B) VACCINE SHARED DECISION-MAKING Aged Out No longer eligible based on patient's age to complete this topic MENINGOCOCCAL GROUPS A/C/Y/W VACCINE Aged Out No longer eligible based on patient's age to complete this topic Insurance [employer] MEDICARE [employer] Care Teams Loin Trimmer Relationship Specialty Start Date End Date Torie Del Castillo MD PCP - General Internal Medicine 09/15/14 Robinson Castellanos DO Orthopedic Surgery 03/16/16
--- OUTSIDE RECORDS SUMMARY | 2024-08-09 09:55 | XMS_ITS ---
Author Organization [facility] Address [address] [address] Care Team Providers Care Narrow Fabric Loom Fixer Name Role Phone Brooke Mitchell Primary Care Provider Unavail able Erik Eubanks Unavailable [phone] Florecita Carrion Unavailable Unavailable REASON FOR VISIT RE:RE:adrenals/anemia/refills Encounters Encounter Location Date Provider Diagnosis [facility] [address] [facility] [address] [address] 07/19/2024 Erik Eubanks PLAN OF TREATMENT Next Appt Details Provider Name:Erik Eubanks, 08/29/2024 11:00:00 AM, [address], [address],
--- OUTSIDE RECORDS SUMMARY | 2024-08-09 09:55 | XMS_ITS ---
Author Organization [facility] Address [address] [address] Care Team Providers Care Cork Grinder Name Role Phone Brooke Mitchell Primary Care Provider Unavail able Erik Eubanks Unavailable [phone] Florecita Carrion Unavailable Unavailable REASON FOR VISIT lab results MEDICATIONS Medication SIG (Take, Route, Fr equency, Duration) Notes Start Date End Date Status Brilinta 90 MG 1 tablet Orally Twic e a day for 30 day(s) 07/22/2024 Active Slow-Mag 71.5-119 MG 1 Tablet Orally Onc e a day for 30 day(s) 07/22/2024 Active Klor-Con 10 10 MEQ 1 tablet with food O rally Once a Day for 30 day(s) 07/22/2024 Active Encounters Encounter Location Date Provider Diagnosis [facility] [address] [address] 07/22/2024 Erik Eubanks Hypertension I10 ASSESSMENTS Encounter Date Diagnosis Assessment Notes Treatment Notes Treatment Clinical Notes 07/22/2024 Hypertension (ICD-10 - I10) PLAN OF TREATMENT Medication Medication Name Sig Start Date Stop Date Notes Ticagrelor 60 MG 0.5 tablet Orally Twice a day Brilinta 90 MG 1 tablet Orally Twic e a day for 30 day(s) 07/22/2024 Slow-Mag 71.5-119 MG 1 Tablet Orally Onc e a day for 30 day(s) 07/22/2024 Klor-Con 10 10 MEQ 1 tablet with food O rally Once a Day for 30 day(s) 07/22/2024 Next Appt Details Provider Name:Erik Eubanks, 08/29/2024 11:00:00 AM, [address], [place], [address],
--- OUTSIDE RECORDS SUMMARY | 2024-08-09 09:55 | XMS_ITS | Patient Health Record ---
Author Organization [facility] Address [address] [facility] [address] [place] [address] Care Team Providers Care Investigator Internal Affairs Name Role Phone Beronica HART, Yudi Primary Care Provider Robinson De La Rosa Unavailable [phone] Allergies No Known Allergies Reason For Referral No Information Medications Medication SIG (Take, Route, Frequency, Duration) Notes Start Date End Date Status amLODIPine Benzoate Active Brilinta 90 MG 1 tablet Orally Twic e a day for 30 day(s) Active Ezetimibe Active OTC/Vitamins ASA, B12, D2 Acti ve Metoprolol Succinate ER Active Jardiance Active Praluent Active Lantus Active Trulicity Active metFORMIN HCl Active Vascepa 1mg-2 tabs BID Activ e Social History Tobacco Use: Social History Observation Description Date Details (start date - stop date) Never Smoker NA - NA Tobacco Use/Smoking Question Answer Notes Are you a nonsmoker Problems Problem Type SNOMED Code ICD Code Onset Dates Problem Status W/U Status Risk Notes Problem 657604139 Gastroparesis (K31.84) Active confirmed Problem 424720924 GERD (gastroesophagea l reflux disease) (K21.9) Active confirmed Start omeprazole 40mg daily Problem 65669157 Constipation (K59.00) Active confirmed Start miralax daily, titrate to adequate bowel movements. Start daily benefiber. Problem 75867888 Ischemic colitis (K55.9) Active confirmed Plan Of Treatment Pending Test Test Name Order Date Colonoscopy 10/14/2020 Insurance Providers Payer Name Payer Address Payer Phone Subscriber Number Group Number Insured Name Patient Relationship to Insured Coverage Start Date Coverage End Date [facility] Choice/ choice Plus E2 [address] [address] [place] [address] [phone] [id number] Marcus Benton Spouse - patient is the spouse of the insured Medical (General) History Medical History History ICD Code GERD Ischemic Colitis Diabetes Hypertension Stroke Sleep Apnea Heart Disease/Stents Coronary Artery Disease Depression Hyperlipidemia Migraines Ovarian Cancer Surgical History Surgery Date(Month/Year) Colonoscopy:Mucosal ulceration consistent with Ischemic Colitis. 10/2019 Angioplasty x2 , 3 Stents 10/2019 Hyperparathyroid 05/2013 CABG x8 09/2012 Abdominoplasty 2005 Hysterectomy Ankle Surgery C Section Hospitalization History Reason Date(Month/Year) [facility]:Abdominal Pain, Hematochezia [facility]: Abnormal Stress Test 10/2019 Stroke Like Symptoms 09/2019
--- OUTSIDE RECORDS SUMMARY | 2024-08-09 09:55 | XMS_ITS | Patient Health Record ---
Author Organization [facility] Address [address] [address] Care Team Providers Care Publicity Person Name Role Phone StephenNidiaBrooke Primary Care Provider Unavail able Erik Eubanks Unavailable [phone] Florecita Carrion Unavailable Unavailable Belen Kearns Unavailable [phone] ALLERGIES Allergen (clinical drug ingredient) Drug/Non Drug Allergy documented on EMR Reaction Allergy Type Onset Date Status rosuvastatin Crestor Unknown Drug Allergy Acti ve empagliflozin Jardiance UTI's Drug Allergy Act hillary dapagliflozin Farxiga UTI's Drug Allergy Act hillary dapagliflozin / metformin Xigduo XR UTI's Drug Allergy Active metformin MetFORMIN HCl ER Hair loss Drug Allergy Active RESULTS Component Value Reference Range Notes Bone Density (DEXA Scan) - Ash Griffith Reviewed date:08/29/2023 01:53:12 PM Interpretation: Performing Lab: Notes/Report: Bone Density (DEXA Scan) - Ash Griffith Reviewed date:08/29/2023 01:53:12 PM Interpretation: Performing Lab: Notes/Report: Hemoglobin A1c Reviewed date:10/01/2023 12:00:05 PM Interpretation: Performing Lab:[facility], [address] [facility], [place], Phone - [phone], Director - PhDRicchilouisei Notes/Report: Hemoglobin A1c 7.8 4.8-5.6 % . Prediabetes: 5.7 - 6.4 Diabetes: >6.4 Glycemic control for adults with diabetes: <7.0 Vitamin D, 25-Hydroxy Reviewed date:10/01/2023 12:03:00 PM Interpretation: Performing Lab:[facility], [address] [place] [address], Phone - [phone], Director - [facility] Notes/Report: Vitamin D, 25-Hydroxy 39.0 30.0-100.0 ng/mL Vitamin D deficiency has been defined by the [place] of Medicine and an Endocrine Society practice guideline as a level of serum 25-OH vitamin D less than 20 ng/mL (1,2). The Endocrine Society went on to further define vitamin D insufficiency as a level between 21 and 29 ng/mL (2). 1. IOM ([place] of Medicine). 2010. Dietary reference intakes for calcium and D. [place]: The National Academies Press. 2. Tali MF, Judy ROGERS, Rhina BUI, et al. Evaluation, treatment, and prevention of vitamin D deficiency: an Endocrine Society clinical practice guideline. JCEM. 2010; 96(7):1911-30. Microalb/Creat Ratio, Randm Ur Reviewed date:10/01/2023 12:02:32 PM Interpretation: Performing Lab:[facility], [address] [facility], Phone - [phone], Director - [facility] Notes/Report: Creatinine, Urine 282.6 Not Estab. mg/dL Albumin, Urine 54.9 Not Estab. ug/mL Alb/Creat Ratio 19 0-29 mg/g creat Normal: 0 - 29 Moderately increased: 30 - 300 Severely increased: >300 Vitamin B12 Reviewed date:10/01/2023 12:02:47 PM Interpretation: Performing Lab:[facility], [address] [facility], Phone - [phone], Director - [facility] Notes/Report: Vitamin B12 681 486-9325 pg/mL Adama Holland CMP14 Default A hand-written panel/profile was received from your office. In accordance with the [facility] Ambiguous Test Code Policy dated September 2002, we have completed your order by using the closest currently or formerly recognized AMA panel. We have assigned Comprehensive Metabolic Panel (14), Test Code #976924 to this request. If this is not the testing you wished to receive on this specimen, please contact the [facility] Client Inquiry/Technical Services Department to clarify the test order. We appreciate your business. Lipid Panel Reviewed date:10/01/2023 12:03:21 PM Interpretation: Performing Lab:[facility] [place] [facility] [facility], Phone - [phone], Director - [facility] Notes/Report: Cholesterol, Total 180 100-199 mg/dL Triglycerides 108 0-149 mg/dL HDL Cholesterol 75 >39 mg/dL VLDL Cholesterol Abdirizak 19 5-40 mg/dL LDL Chol Calc ([facility]) 86 0-99 mg/dL LDL Calc Comment: Comp Metabolic Panel (14) Reviewed date:10/01/2023 12:04:21 PM Interpretation: Performing Lab:[facility] [place], [facility], Phone - [phone], Director - [facility] Notes/Report: Glucose 130 70-99 mg/dL BUN 17 8-27 mg/dL Creatinine 0.82 0.57-1.00 mg/dL eGFR 80 >59 mL/min/1.73 BUN/Creatinine Ratio 21 12-28 Sodium 141 134-144 mmol/L Potassium 4.3 3.5-5.2 mmol/L Chloride 106 96-106 mmol/L Carbon Dioxide, Total 19 20-29 mmol/L Calcium 9.5 8.7-10.3 mg/dL Protein, Total 7.0 6.0-8.5 g/dL Albumin 4.6 3.9-4.9 g/dL Globulin, Total 2.4 1.5-4.5 g/dL Bilirubin, Total 0.4 0.0-1.2 mg/dL Alkaline Phosphatase 91 44-121 IU/L AST (SGOT) 14 0-40 IU/L ALT (SGPT) 11 0-32 IU/L Urinalysis, Complete, Compre hensive w/reflex to culture Reviewed date:10/03/2023 12:27:54 PM Interpretation: Performing Lab:[facility] [place] [facility] [facility], [place], Phone - [phone], Director - [facility] Notes/Report: Specific [place] 1.026 1.005-1.030 pH 5.5 5.0-7.5 Urine-Color Yellow Yellow Appearance Turbid Clear WBC Esterase 2+ Negative Protein 1+ Negative/Trace Glucose Negative Negative Ketones Negative Negative Occult Blood 1+ Negative Bilirubin Negative Negative Urobilinogen,Semi-Qn 0.2 0.2-1.0 mg/dL Nitrite, Urine Positive Negative Microscopic Examination See below: Micr oscopic was indicated and was performed. Microscopic Examination Urinalysis Reflex This speci men has reflexed to a Urine Culture. WBC >30 0 - 5 /hpf Clumps of leuko cytes present. RBC 3-10 0 - 2 /hpf Epithelial Cells (non renal) 0-10 0 - 10 /hpf Epithelial Cells (renal) Casts None seen None seen /lpf Cast Type Crystals Crystal Type Mucus Threads Present Not Estab. Bacteria Many None seen/Few Yeast Trichomonas Comment Urine Culture,Comprehensive Final report Result 1 Escherichia coli Greater than 100,000 colony forming units per mL Cefazolin <=4 ug/mL Cefazolin with an HARDY <=16 predicts susceptibility to the oral agents cefaclor, cefdinir, cefpodoxime, cefprozil, cefuroxime, cephalexin, and loracarbef when used for therapy of uncomplicated urinary tract infections due to E. coli, Klebsiella pneumoniae, and Proteus mirabilis. Antimicrobial Susceptibility S = Susceptible; I = Intermediate; R = Resistant P = Positive; N = Negative MICS are expressed in micrograms per mL Antibiotic RSLT#1 RSLT#2 RSLT#3 RSLT#4 Amoxicillin/Clavulanic Acid S Ampicillin S Cefepime S Ceftriaxone S Cefuroxime S Ciprofloxacin S Ertapenem S Gentamicin S Imipenem S Levofloxacin S Meropenem S Nitrofurantoin S Piperacillin/Tazobactam S Tetracycline S Tobramycin S Trimethoprim/Sulfa S Adama Holland LP Default Reviewed date:10/01/2023 11:53:59 AM Interpretation: Performing Lab:[facility], [address] [facility], Phone - [phone], Director - [place] Notes/Report: Adama Holland LP Default A hand-written panel/profile was received from your office. In accordance with the [facility] Ambiguous Test Code Policy dated September 2002, we have completed your order by using the closest currently or formerly recognized AMA panel. We have assigned Lipid Panel, Test Code #[id number] to this request. If this is not the testing you wished to receive on this specimen, please contact the [facility] Client Inquiry/Technical Services Department to clarify the test order. We appreciate your business. Ferritin, Serum Reviewed date:07/19/2024 01:53:47 PM Interpretation: Performing Lab: Notes/Report: Ferritin, Serum 76 Ambiguous Test Order Specimen Status Report Adama Holland CMP14 Default Hemoglobin A1c Reviewed date:07/19/2024 01:54:08 PM Interpretation: Performing Lab: Notes/Report: Hemoglobin A1c Hemoglobin A1c 6.5 Adama Holland CMP14 Default Specimen Status Report Request Problem NTI Urine Tube (Sanchez) Request Problem Ambiguous Test Order Comp Metabolic Panel (14) Reviewed date:07/02/2024 08:13:50 PM Interpretation: Performing Lab: Notes/Report: Glucose, Serum 102 BUN 20 Creatinine, Serum 0.77 BUN/Creatinine Ratio Sodium, Serum 139 Potassium, Serum 3.8 Chloride, Serum 105 Carbon Dioxide, Total 24 Calcium, Serum 9.6 Protein, Total, Serum 7.3 Albumin, Serum 4.5 Globulin, Total A/G Ratio Bilirubin, Total 0.5 Alkaline Phosphatase, S 63 AST (SGOT) 27 ALT (SGPT) 16 eGFR 86 eGFR If NonAfricn Am eGFR If Africn Am eGFR If Africn Am Adama Holland CMP14 Default Request Problem Specimen Status Report Request Problem Please note Urinalysis, Complete, Compre hensive w/reflex to culture Reviewed date:07/22/2024 11:35:50 AM Interpretation: Performing Lab: Notes/Report: Appearance Cloudy Bilirubin Negative Glucose Negative Glucose Reflex Ketones Trace Microscopic Examination See below Microscopic Examination Nitrite, Urine Negative Occult Blood 1+ pH 5.5 Protein 1+ Specific [place] 1.017 Urine-Color Yellow Urobilinogen,Semi-Qn 0.2 WBC Esterase 3+ Urinalysis Reflex WBC >30 RBC 0-10 Epithelial Cells (non renal) 0-10 Epithelial Cells (renal) Casts None seen Cast Type Crystals Crystal Type Mucus Threads Bacteria Few Yeast Trichomonas Comment Urine Culture,Comprehensive Result 1 Antimicrobial Susceptibility Result 2 Result 3 Specimen Status Report Request Problem TSH+T3+T4F Reviewed date:07/19/2024 01:54:58 PM Interpretation: Performing Lab: Notes/Report: T4,Free(Direct) 1.14 Triiodothyronine (T3) 87 TSH 1.580 REASON FOR REFERRAL No Information MEDICATIONS Medication SIG (Take, Route, Frequency, Duration) Notes Start Date End Date Status Accu-Chek Cortney Plus - use 1 test strip In Vitro Two Times a Day for 90 days Active Brilinta 90 MG 1 tablet Orally Twic e a day for 30 day(s) 07/22/2024 Active Slow-Mag 71.5-119 MG 1 Tablet Orally Onc e a day for 30 day(s) 07/22/2024 Active accu check meter regular testing blood sugar in vitro Once a Day for 1 days 10/07/2022 Active Klor-Con 10 10 MEQ 1 tablet with food O rally Once a Day for 30 day(s) 07/22/2024 Active Aspir-81 81 MG 1 tablet Orally Once a day Active Dexcom G7 Sensor - Use 1 sensor every e very 10 days for 90 days 05/17/2024 Active Sulfamethoxazole-Trimet hoprim 800-160 MG 1 tablet Orally Two Times a Day for 7 days 05/17/2024 Active Omeprazole 40 MG 1 capsule Orally Onc e a day for 30 day(s) Not-Taking metFORMIN HCl ER 500 MG TAKE 2 TABLETS B Y MOUTH TWICE DAILY Active Lantus SoloStar 100 UNIT/ML 25 units at bedtime Subcutaneous Once a Day Active Repatha 140 MG/ML 1 ml Subcutaneous Tw ice a month Active Vascepa 1 GM 2 capsules with meal s Orally Twice a day Active Ezetimibe 10 MG 1 tablet Orally Once a day Active amLODIPine Besy-Benazepril HCl 5-10 MG 1 capsule Orally Once a Day 12/14/2023 Active Drisdol 80992 UNIT 1 capsule Orally Twi ce a week Active Metoprolol Succinate ER 50 MG 1 tablet Orally Two Times a Day Active Mounjaro 7.5 MG/0.5ML 0.5 ml Subcutaneou s Once a Week for 30 days 05/17/2024 Active IMMUNIZATIONS Vaccine Route Administration Date Status Comme nts Influenza IM Intramuscular 01/27/2016 Administered SOCIAL HISTORY Tobacco Use: Social History Observation Description Date Details (start date - stop date) Never Smoker NA - NA Sex Assigned At : Social History Observation Description Sex Assigned At Unknown Tobacco Use/Smoking Question Answer Notes Are you a nonsmoker Tobacco use other than smoking: Question Answer Notes Are you an other tobacco user? 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) Active confirmed Complicati on due to diabetes mellitus type 2 (68337716051412) Problem Hypertension (I10) Active confirmed Hyp ertension (81362539) Problem Vitamin D deficiency, unspecified (E55.9) Active confirmed Vitamin D deficiency (21722358) Problem Adrenal mass, left (E27.9) Active confirmed Disorder of adrenal gland (50276352) Problem Deficiency of other specified B group vitamins (E53.8) Active confirmed Vitamin B deficiency (88916440) Problem Thyroid nodule (E04.1) Active confirmed Thyroid nodule (045403126) Problem 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 167.0 ( 04/19) Blood pressure diastolic 74 mm Hg 05/17/2024 wt. 167.0 (09/25/23) Height 64 in 05/17/2024 wt. 167.0 ( 04/19) Blood pressure systolic 126 mm Hg 05/17/2024 wt. 167.0 (09/25/23) Weight 168.6 lbs 05/17/2024 wt. 167.0 ( 04/19) BMI 28.94 kg/m2 05/17/2024 wt. 167.0 ( 04/19) Encounters Encounter Location Date Provider Diagnosis [facility] [address] [address] 09/25/2023 Belen Kearns Type 2 diabetes mellitus with hyperglycemia E11.65 ; Combined hyperlipidemia associated with type 2 diabetes mellitus E11.69 ; Hypertension I10 ; Vitamin D deficiency, unspecified E55.9 ; Adrenal mass, left E27.9 ; Deficiency of other specified B group vitamins E53.8 ; Thyroid nodule E04.1 ; Nontoxic multinodular goiter E04.2 ; Osteoporosis M81.0 and Dysuria R30.0 [facility] [address] [address] 01/16/2024 Erik Oiknine Type 2 diabetes mellitus with hyperglycemia E11.65 ; Combined hyperlipidemia associated with type 2 diabetes mellitus E11.69 ; Hypertension I10 ; Vitamin D deficiency, unspecified E55.9 ; Adrenal mass, left E27.9 ; Deficiency of other specified B group vitamins E53.8 ; Thyroid nodule E04.1 ; Nontoxic multinodular goiter E04.2 ; Osteoporosis M81.0 and Dysuria R30.0 [facility] [address] [address] 05/17/2024 Belen Kearns Type 2 diabetes mellitus with hyperglycemia E11.65 ; Combined hyperlipidemia associated with type 2 diabetes mellitus E11.69 ; Hypertension I10 ; Vitamin D deficiency, unspecified E55.9 ; Adrenal mass, left E27.9 ; Deficiency of other specified B group vitamins E53.8 ; Thyroid nodule E04.1 ; Nontoxic multinodular goiter E04.2 ; Osteoporosis M81.0 ; Iron deficiency E61.1 and Dysuria R30.0 [facility] [address] [address] 08/31/2023 Erik Oiknine [facility] [address] [address] 10/03/2023 Erik Oiknine [facility] [address] [address] 12/14/2023 Erik Oiknine Hypertension I10 [facility] [address] [address] 03/29/2024 Erik Oiknine Type 2 diabetes mellitus with hyperglycemia E11.65 [facility] [address] [address] 07/02/2024 Erik Oiknine [facility] [address] [address] 07/18/2024 Erik Oiknine Type 2 diabetes mellitus with hyperglycemia E11.65 [facility] [address] [address] 07/22/2024 Erik Oiknine Hypertension I10 [facility] [address] [address] 07/24/2024 Erik Oiknine Type 2 diabetes mellitus with hyperglycemia E11.65 [facility] [address] [address] 07/19/2024 Erik Raimundo [facility] [address] [address] 07/19/2024 Erik Gabrielaleksandra ASSESSMENTS Encounter Date Diagnosis Assessment Notes Treatment Notes Treatment Clinical Notes 09/25/2023 Type 2 diabetes mellitus with hyperglycemia (ICD-10 - E11.65) 09/25/2023 Combined hyperlipidemia associated with type 2 diabetes mellitus (ICD-10 - E11.69) 01/16/2024 Type 2 diabetes mellitus with hyperglycemia (ICD-10 - E11.65) 05/17/2024 Type 2 diabetes mellitus with hyperglycemia (ICD-10 - E11.65) 05/17/2024 Combined hyperlipidemia associated with type 2 diabetes mellitus (ICD-10 - E11.69) 12/14/2023 Hypertension (ICD-10 - I10) 03/29/2024 Type 2 diabetes mellitus with hyperglycemia (ICD-10 - E11.65) 07/18/2024 Type 2 diabetes mellitus with hyperglycemia (ICD-10 - E11.65) 07/22/2024 Hypertension (ICD-10 - I10) 07/24/2024 Type 2 diabetes mellitus with hyperglycemia (ICD-10 - E11.65) 09/25/2023 Hypertension (ICD-10 - I10) 01/16/2024 Combined hyperlipidemia associated with type 2 diabetes mellitus (ICD-10 - E11.69) 05/17/2024 Hypertension (ICD-10 - I10) 09/25/2023 Vitamin D deficiency, unspecified (ICD-10 - E55.9) 01/16/2024 Hypertension (ICD-10 - I10) 05/17/2024 Vitamin D deficiency, unspecified (ICD-10 - E55.9) 09/25/2023 Adrenal mass, left (ICD-10 - E27.9) 01/16/2024 Vitamin D deficiency, unspecified (ICD-10 - E55.9) 05/17/2024 Adrenal mass, left (ICD-10 - E27.9) 09/25/2023 Deficiency of other specified B group vitamins (ICD-10 - E53.8) 01/16/2024 Adrenal mass, left (ICD-10 - E27.9) 05/17/2024 Deficiency of other specified B group vitamins (ICD-10 - E53.8) 09/25/2023 Thyroid nodule (ICD-10 - E04.1) 01/16/2024 Deficiency of other specified B group vitamins (ICD-10 - E53.8) 05/17/2024 Thyroid nodule (ICD-10 - E04.1) 09/25/2023 Nontoxic multinodular goiter (ICD-10 - E04.2) 01/16/2024 Thyroid nodule (ICD-10 - E04.1) 05/17/2024 Nontoxic multinodular goiter (ICD-10 - E04.2) 09/25/2023 Osteoporosis (ICD-10 - M81.0) 01/16/2024 Nontoxic multinodular goiter (ICD-10 - E04.2) 05/17/2024 Osteoporosis (ICD-10 - M81.0) 09/25/2023 Dysuria (ICD-10 - R30.0) 01/16/2024 Osteoporosis (ICD-10 - M81.0) 05/17/2024 Iron deficiency (ICD-10 - E61.1) 01/16/2024 Dysuria (ICD-10 - R30.0) 05/17/2024 Dysuria (ICD-10 - R30.0) 09/25/2023 Other The patient ret urns for follow up. Her weight is down 7 lbs since her last visit. She's been monitoring her BS's daily fasting at home. These have been 130-140 range. She was switched to Mounjaro since she couldn't get any supply of Trulicity. She's had 2 doses. She had some mild nausea/bloating after her 2nd dose. I advised her to continue w/the Mounjaro and to notify us of the nausea worsens or she develops vomiting or abdominal pain. She continues to report joint pain and left-sided numbness. She has been evaluated by 2 neurologists and her w/u is still in process. She sometimes has left-sided weakness w/it. No recent falls. She reports her balance if off at times. I suggested she request PT for balance training. She has HTN and HLD which are treated. Her BP is controlled. She report hair loss. She was advised to start OTC iron supplements but never received the message. She will start iron 325 mg/day. We reviewed her BD results. I suggested 1200 mg of calcium/day through diet and/or supplement. I provided her w/a list of high calcium foods. I recommended daily weightbearing exercise. She will continue w/her vitamin D. She reports dysuria. We'll start antibiotics after we check UA w/cx. I've ordered A1c, CMP, ALLISON, lipids, and vitamins B12 and D today. I asked her to continue her current diabetes regimen pending labs. She had a recent eye exam. No reported retinopathy. Of note, she received the Dexcom G7 sensor. She has yet to start the sensor. She plans to use the mobile melina. I gave her information to set up a [employer] account to share her data. 01/16/[address] Erik chacon dictates using [employer] software. Analytical Lab Technician variances may occur. 05/17/2024 Other The patient ret urns for follow up. Her weight is stable. BP is controlled. She feels well. Her BS's have improved after switching to Mounjaro. She had lowered her lantus to 30 u/day b/c of low BS's overnight. She was on the Dexcom sensor, however, ran out of her supplies and is waiting for shipment. She is exercising for weight loss. She is discouraged she hasn't lost much weight. We agreed to increase Mounjaro to 7.5 mg/week. She will notify us if she develops any GI upset on the higher dose. She'll lower lantus to 25 u/day and continue on metformin. She has dysuria. She had a UTI in September of last year and again in January. I suggested she see a urologist for evaluation. She will ask her PCP for a referral closer to home. She has history of HTN, HLD and CAD. Her LDL was 86. She continues to see her leasing specialist regularly. She has osteopenia and remains on high dose vitamin D. Her last level was good. She gets calcium through her diet. She has history of MNG. No reports of dysphagia or dysphonia. Her last thyroid US was 05/2023. She has iron deficiency. She tried the iron supplement, however, she developed constipation and stopped it. I asked her to check A1c, CMP, TFT's and ferritin today. She'll f/u again in 3 months. PLAN OF TREATMENT Next Appt Details Provider Name:Erik Eubanks, 08/29/2024 11:00:00 AM, [address] [facility] [address], [place], [address], Insurance Providers Payer Name Payer Address Payer Phone Subscriber Number Group Number Insured Name Patient Relationship to Insured Coverage Start Date Coverage End Date Medicare [address] [address] [place] [phone] [id number] Cesar Benton Self - patient is the insured [facility] [address] [address] [place] [address] [id number] Marcus Talyor Spouse - patient is the spouse of the insured MEDICAL (GENERAL) HISTORY Medical History History ICD Code Type II DM Hyperlipidemia--dr lloyd --praluent Hypertension CAD S/P CABG 10/04/2012---- STENTS 2016 ( 2 stents) and 10/2019 ( stent) hx of intolerance to Crestor hx of hair loss on metformin hx of migraine headaches -- DR BORJAS 1.3 cm left adrenal mass---P ET SCAN 11/18/2019----1.5 CM LEFT ADRENAL MASS ON CT SCAN 11/2019 Diverticulosis Fatty liver alopecia RIGHT CARPAL TUNNEL--- DR CORNELIO THOMAS Osteopenia Surgical History Surgery Date(Month/Year) hysterectomy --endometriosis [address] Siddiqui [address] [place] [address] RESENDIZ 10/07/2016 2017 Angioplasty 2020 carpal tunnel release 03/2023 Trapezium 03/2023 Hospitalization History Reason Date(Month/Year) Heart Stent 2016 Colitis 2020
--- OUTSIDE RECORDS SUMMARY | 2024-08-09 09:55 | XMS_ITS | Referral Summary ---
Author Organization [facility] [place] [address] Address [address] [place] [address] Care Team Providers Care Shrub Grower Name Role Phone Yudi Loco MD Unavailable [phone] Brianna Cano MD Unavailable [phone] Harshil Claros MD Unavailable [phone] Ruthie Valle MD Unavailable [phone] Yudi Loco MD Primary Care Provider + [...] mg 24 hr tabletIndication s:Atherosclerosi s of [place] coronary artery of [place] heart without angina pectoris Take 1 tablet [...] (07/06/2021): Added automatically from request for surgery [id number] Carotid atherosclerosis, left 11/15/2019 Colitis 11/15/2019 Left-sided weakness 11/15/2019 Chest discomfort 11/13/2019 Left carotid bruit 02/11/2019 Coronary artery disease of n ative artery of [place] heart with stable angina pectoris 07/04/2017 Assessment [...] 05/30/2017 Assessment & Plan (05/30/2017 1:45 PM DRONE OPERATOR): Mar 2017 Needs 6 month follow-up (September 2017) Release for prior records. Class 1 obesity due to exces s calories with serious comorbidity and body mass index (BMI) of 30.0 to 30.9 in adult 05/30/2017 Assessment & Plan (05/30/2017 2:02 PM DRONE OPERATOR): Obesity is newly identified. Discussed the patient's BMI. The BMI is above average; BMI management plan is completed. General weight loss/lifestyle modification strategies discussed (elicit support from others; identify saboteurs; non-food rewards, etc). Body mass index is 30.73 kg/m . Atherosclerosis of coronary artery 06/05/2013 Type 2 diabetes mellitus with other specified co mplication 09/21/2012 Assessment & Plan (05/30/2017 2:07 PM DRONE OPERATOR): Multiple new medical complaints today, most concerning of which is the headaches. Only prior records avail are from 2013 and earlier. Nothing more recent despite looking in [email or web address], [employer] system, and care everywhere in [facility]. Apparently had head imaging in 2016 that showed history of stroke. Cardiac stents placed within the last 12 months. Labs done today at [facility] office. No new meds or stressors in [...] Vaccination (12+ Yrs) PURPLE 01/27/2021,06/26/2020,06/05/2020 Tdap 09/21/2012 Social History Tobacco Use Types Packs/Day Years [...] on file Legal Sex Female 1:40 AM DRONE OPERATOR Gender Identity Not on file Sexual Orientation Not on file Occupation Industry Job Start Date Job End Date Not on file Not on file Not on file Not on file Last Filed Vital Signs Vital Sign Reading Time Taken Comments Blood Pressure 115/70 04/12/2023 12:50 PM DRONE OPERATOR Pulse 79 04/12/2023 1:00 PM DRONE OPERATOR Temperature 36.2 C (97.2 F) 04/12/2023 1:00 PM DRONE OPERATOR Respiratory Rate 17 04/12/2023 1:00 PM DRONE OPERATOR Oxygen Saturation 97% 04/12/2023 1:00 PM DRONE OPERATOR Inhaled Oxygen Concentration - - Weight 79.4 kg (175 lb) 04/12/2023 7:45 AM DRONE OPERATOR Height 162.6 cm (5' 4 ) 04/12/2023 7:45 AM DRONE OPERATOR Body Mass Index 30.04 04/12/2023 7:45 AM DRONE OPERATOR Plan of Treatment Not on file Medical Devices Implanted Type Area Digital Court Reporter Device Identifier Shelf Expiration Date Model / Serial / Lot [employer] Corkscrew Suturetape 5.5mm 14.7mm Bioabsorbable Full Thread 1.3mm [id number] - [id number] Implanted:Qty: 1 on 08/06/2021 by Arben Choi MD at [facility] Other - see comments Left: Shoulder [employer] 01/24/[id number] / / [id number] [employer] Ar-2324 Bcm Swivelock 4.75mm 24.5mm Self Punch Vent Shoulder [place] Suture - S0 - [id number] Implanted:Qty: 1 on 08/06/2021 by Arben Choi MD at [facility] Other - see comments Left: Shoulder [employer] 03/26/2025 AR-2324B CM / 0 / [id number] Description:Suture [place] [employer] Ar-2324 Bcm Swivelock 4.75mm 24.5mm Self Punch Vent Shoulder [place] Suture - S0 - [id number] Implanted:Qty: 1 on 08/06/2021 by Arben Choi MD at [facility] Other - see comments Left: Shoulder [employer] 03/26/2025 AR-2324B CM / 0 / [id number] Description:Suture [place] Stent-10/07/2016 Implanted:Qty: 2 on 10/07/2016 Stent N/A: Heart Stent-11/25/2019 Implanted:Qty: 1 on 11/25/2019 Stent Heart Synergy [place] [employer] Heart [employer] Corkscrew Fiberwire 2.7mm 7mm 17.9mm Needle Wire Foot Ankle 2-0 [id number] - [id number] Implanted:Qty: 2 on 04/12/2023 by Myron Encinas MD at [facility] Right: Wrist [employer] [id number] 11/25/2027 [id number] / / [id number] Procedures Procedure Name Priority Date/Time Associated Diagnosis Comments LIPID PANEL Routine 02/22/2019 9:06 AM DRONE OPERATOR Mixed hyperlipidemia Statin intolerance Encounter for long-term (current) use of other medications COMPREHENSIVE METABOLIC PANEL Routine 08/25/2018 8:09 AM CDT Encounter for long-term (current) use of medications Hyperlipidemia, unspecified hyperlipidemia type Coronary artery disease of [place] heart with stable angina pectoris, unspecified vessel or lesion type SCREENING MAMMOGRAM 2D BILATERAL Schedule Routine, Read Routine (OP Routine) 03/31/2017 from Last 3 Months or Most Recently Relevant to Health Maintenance Results * (ABNORMAL) Lipid panel (02/22/2019 9:06 AM DRONE OPERATOR) Cholesterol 201(H) 100 - 199 mg/dL [facility] - 01 Triglycerides 227(H) 0 - 149 mg/dL [facility] - 01 HDL Cholesterol 72 >39 mg/dL [facility] - 01 VLDL 45(H) 5 - 40 mg/dL [facility] - 01 LDL, calculated 84 0 - 99 mg/dL [facility] - 01 Blood specimen (specimen) 02/22/2019 9:06 AM DRONE OPERATOR 02/22/2019 Narrative [facility] - 02/23/2019 5:06 AM DRONE OPERATOR Performed at: - [facility] [id number] Off Track Betting Manager: Sree Beasley PhD, Phone: [phone] us Ruthie Valle MD LAB BLOOD ORDERABLES Edited Result - Final [facility] - 01 * (ABNORMAL) Comprehensive metabolic panel (08/25/2018 8:09 AM CDT) Glucose 119(H) 65 - 99 mg/dL [facility] [...] - 08/26/2018 6:38 AM CDT Performed at: [facility] [id number] Off Track Betting Manager: Sree Beasley PhD, Phone: [phone] Ruthie Valle MD LAB BLOOD ORDERABLES Final Result [facility] - * Screening Mammogram 2D Bilateral (03/31/2017) SCRIBED BI-RADS 3 Anatomical Region Laterality Modality Breast Bilateral Mammography Historical Provider IMG MAMMO PROCEDURES Alessandra l Result from Last 3 Months or Most Recently Relevant to Health Maintenance Insurance [facility] CHOICE PLUS [facility] CHOICE PLUS MEDICARE [facility] CHOICE PLUS MEDICARE Care Teams Shrub Grower Relationship Specialty Start Date End Date Yudi Loco MD [address] [place] [address] [address] [place] [address] PCP - General 05/14/20 Yudi Loco MD Family Medicine 12/16/19 Brianna Cano MD [address] [place] [address] [address], [place] [address] Referring Physician Neurology 11/18/19 Harshil Claros MD [address] [facility] [address] IKE [place] [address] [address] Referring Physician Gastroenterology 11/18/19 Ruthie Valle MD [address] [place] [address] [address] IKE [address] [address] Consulting Physician Cardiology 11/18/19
--- OUTSIDE RECORDS SUMMARY | 2024-08-09 09:55 | XMS_ITS ---
Author Organization [facility] Address [address] [address] Care Team Providers Care Academic Advisement Director Name Role Phone Brooke Mitchell Primary Care Provider Unavail able Raimundo Erik Unavailable [phone] Florecita Carrion Unavailable Unavailable REASON FOR VISIT PA- Dexcom G7 Sensor MEDICATIONS Medication SIG (Take, Route, Fr equency, Duration) Notes Start Date End Date Status Dexcom G7 Sensor - Use 1 sensor every e very 10 days for 90 days 05/17/2024 Active Encounters Encounter Location Date Provider Diagnosis [facility] [address] [address] 07/24/2024 Erik Eubanks Type 2 diabetes mellitus with hyperglycemia E11.65 ASSESSMENTS Encounter Date Diagnosis Assessment Notes Treatment Notes Treatment Clinical Notes 07/24/2024 Type 2 diabetes mellitus with hyperglycemia (ICD-10 - E11.65) PLAN OF TREATMENT Medication Medication Name Sig Start Date Stop Date Notes Dexcom G7 Sensor - Use 1 sensor every e very 10 days for 90 days 05/17/2024 Next Appt Details Provider Name:Erik Eubanks, 08/29/2024 11:00:00 AM, [address], [address],
--- OUTSIDE RECORDS SUMMARY | 2024-08-09 09:55 | XMS_ITS | Encounter Summary ---
Author Organization [facility] Address [address] [place] [address] Care Team Providers Care Paper Sorter Name Role Phone Torie Del Castillo MD Primary Care Provider [phone] Robinson Castellanos DO Unavailable [phone] Encounter Details Date Type Department Care Team (Late st Contact Info) Description 07/06/2022 Lab Requisition [facility] [address] [place] [address] Matt Rahman Jr., MD [address] [facility] [address] [place] [address] Social History Tobacco Use Types Packs/Day Years Used Date Smoking Tobacco: Never Smokeless Tobacco: Never Alcohol Use Standard Drinks/Week Comments No 0 (1 standard drink = 0.6 oz pur e alcohol) Comments Unknown Sex and Gender Information Value Date Recorded Sex Assigned at Not on file Legal Sex Female 5:57 AM FOLLOW UP REP Gender Identity Not on file Sexual Orientation Not on file documented as of this encounter Plan of Treatment Not on file documented as of this encounter Procedures Procedure Name Priority Date/Time Associated Diagnosis Comments DERMATOPATHOLOGY Routine 07/06/2022 12:0 0 AM CDT documented in this encounter Results * DERMATOPATHOLOGY (07/06/2022 12:00 AM CDT) Case Report Dermatopathology Report Case: [id number] Authorizing Provider: Matt Rahman Jr., MD Collected: 07/06/2022 12:00 AM Ordering Location: [facility] Received: 07/06/2022 02:22 PM Pathologist: Jeanette Cronin MD Specimen: Skin, posterior mid-parietal scalp 3:21 PM [facility] Final Diagnosis Specimen A. 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 Traction Alopecia vs. Androgenetic Alopecia vs. Chronic Telogen Effluvium. 3:21 PM [facility] Gross Description Specimen A: Received is one formalin filled container labeled with the patient's name and designated posterior mid-parietal scalp. The specimen consists of a punch biopsy measuring 4x4x5 mm. Jar 0. 3:21 PM [facility] Microscopic Description Specimen A. SKIN, posterior mid-parietal scalp: The specimen is submitted per alopecia protocol. Sections show a decreased number of terminal hair follicles. Scattered follicular units are replaced by fibrosis. Sebaceous glands are decreased. Inflammation is present, composed of predominantly lymphocytes in a superficial and mid perivascular and perifollicular location at the level of the isthmus and lower infundibulum. Additional findings include naked hair shaft fragments in association with histiocytes and multinucleated giant cells, compound follicles, and scattered miniaturized follicles. Pigment casts are not seen. The epidermis shows focal acanthosis. Verhoeff-Van Gieson (VVG) elastic stain highlights focal loss of dermal elastic fibers. Periodic acid-Nabil (PAS) stain fails to highlight fungal elements in the available sections. Original and deeper sections were reviewed. 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 The differential diagnosis includes central centrifugal cicatricial alopecia, which is somewhat favored, lichen planopilaris, and frontal fibrosing alopecia. A superimposed component of androgenetic alopecia cannot be excluded. Clinical correlation is recommended. 3:21 PM [facility] Disclaimer An external and internal positive and negative controls are appropriate for the histochemical, immunohistochemical and immunofluorescence stain(s) in this case (if any), except where stated explicitly. The performance characteristics of the stain(s) cited in this report were developed and its performance characteristic determined by the Dermatopathology Laboratory at [facility], directed by Dr. Krishan Willett. These tests need not be, and therefore are not, approved by the [place] Food and Drug Administration. The tests are used for clinical purposes. Billing Codes Specimen Charges Stain Charges 80904 1 [id number] 25069 1 1 3 3:21 PM CDT DERMATOP[facility]Y LABORATORY Embedded Images 3 3:21 PM CDT DERMATOPATHOLOGY LABORATORY Pathology/Cytolog y TISSUE SPECIMEN FROM SKIN / Unknown 07/06/2022 07/06/2022 2:22 PM CDT Matt Rahman Jr., MD LAB - PATHOLOGY/CYTOLOG Y ORDERABLES Final Result DERMATOPATHOLOGY LABORATORY [facility] - Department of Dermatology [address] [phone] documented in this encounter Visit Diagnoses Not on filedocumented in this encounter Care Teams Paper Sorter Relationship Specialty Start Date End Date Torie Del Castillo MD PCP - General Internal Medicine 09/15/14 Robinson Castellanos DO Orthopedic Surgery 03/16/16 documented as of this encounter
== END 2024-08-09 09:42 | disposition home or self-care (01) ==
LOC: ANHIMG 09:52
DX: Z12.31 Encounter for screening mammogram for malignant neoplasm of breast (principal)
CPT/HCPCS: 77063; 77067

== ENCOUNTER 2024-12-04 10:00 | Outpatient (RCR) | payer MEDICARE, OTHER, SELFPAY | END 2024-12-05 10:13 | disposition home or self-care (01) | LOC: ANHCPREHAB 10:00 | PROVIDERS: Visit Provider Internal Medicine Cardiovascular Disease | DX: Z95.5 Presence of coronary angioplasty implant and graft (principal) | CPT/HCPCS: 93798 ==